=== PATIENT | female | born 1975 | race Caucasian/White ===

== ENCOUNTER 2022-06-20 13:10 | Outpatient (CLI) | payer BC, SELFPAY ==
[2022-06-20 09:52] LABS: Albumin* 4.3 g/dL (3.3-5.0)
[2022-06-20 09:53] LABS: Chloride* 104 mmol/L (96-114); Potassium* 5.1 mmol/L (3.6-5.1); Sodium* 139 mmol/L (135-149)
[2022-06-20 09:55] LABS: Aspartate Amino Transferase* 31 U/L (12-35); Bilirubin Total* 0.6 mg/dL (0.1-1.5); Blood Urea Nitrogen* 12 mg/dL (5-24); Carbon Dioxide* 29 mmol/L (20-32); Cholesterol* 186 mg/dL (90-199); Creatinine* 0.6 mg/dL (0.5-1.5); Estimated Glomerular Filt Rate 113 ml/min; Total Protein* 7.2 g/dL (6.0-8.3)
[2022-06-20 09:56] LABS: Alanine Aminotransferase* 40 U/L (4-35); Alkaline Phosphatase* 89 U/L (40-150); Calcium* 9.4 mg/dL (8.4-10.6); Glucose* 193 mg/dL (60-115); HDL Cholesterol* 54 mg/dL (>=50); LDL Cholesterol Calculated 100 mg/dL (<100); Triglycerides* 160 mg/dL (40-149)
== END 2022-06-20 13:11 | disposition home or self-care (01) ==
PROVIDERS: PCP Family Medicine; Visit Provider Family Medicine
DX: Z00.00 Encounter for general adult medical examination without abnormal findings (principal); E78.5 Hyperlipidemia, unspecified; E66.9 Obesity, unspecified; R73.09 Other abnormal glucose; Z51.81 Encounter for therapeutic drug level monitoring
CPT/HCPCS: 80053; 80061

== ENCOUNTER 2022-12-05 10:09 | Outpatient (CLI) | payer BC, SELFPAY ==
--- NOTE | 2022-12-05 08:23 | W.ANESCHARGE ---
Anesthesia Charges Start Date/Time Anesthesia Start Date: 12/05/22 Anesthesia Start Time: 10:30 Stop Date/Time Anesthesia Stop Date: 12/05/22 Anesthesia Stop Time: 10:55
--- NOTE | 2022-12-05 10:55 | W.ANESCHARGE ---
Anesthesia Charges Start Date/Time Anesthesia Start Date: 12/05/22 Anesthesia Start Time: 10:30 Stop Date/Time Anesthesia Stop Date: 12/05/22 Anesthesia Stop Time: 10:55
== END 2022-12-05 10:10 | disposition home or self-care (01) ==
LOC: OP CLINIC 10:10
PROVIDERS: PCP Family Medicine; Visit Provider Internal Medicine
DX: Z12.11 Encounter for screening for malignant neoplasm of colon (principal); K64.8 Other hemorrhoids; K57.30 Diverticulosis of large intestine without perforation or abscess without bleeding
CPT/HCPCS: 00811; 00812; 45378; J2704

== ENCOUNTER 2023-06-17 07:47 | Outpatient (CLI) | payer BC, SELFPAY ==
--- OUTSIDE RECORDS SUMMARY | 2023-06-22 20:47 | XMS_ITS | Encounter Summary ---
Author Name Unknown Organization [place] Address [address] [facility] [address] Care Team Providers Care Aerodynamicist Name Role Phone Andreina Vegas MD Unavailable [phone] Andreina Vegas MD Primary Care Provider [phone] Neela Owens MD Unavailable [phone] Reason for Visit * Reason Onset Date Comments Refill Request 04/29/2023 Encounter Details Date Type Department Care Team (Late st Contact Info) Description 04/29/2023 Refill [facility] [address] [place] [address] Neela Owens MD [facility] [address] [place] [id number] Refill Request Social History Tobacco Use Types Packs/Day Years Used Date Smoking Tobacco: Never Smokeless Tobacco: Never Alcohol Use Standard Drinks/Week Comments Yes 0 (1 standard drink = 0.6 oz pur e alcohol) occas. use PHQ-2 Answer Date Recorded PHQ-2 Score 0 10/09/2022 Adolescent Education Answer Date Record ed Getting School Help Needed Not on file 03/06 Sex and Gender Information Value Date Recorded Sex Assigned at Not on file Gender Identity Not on file Sexual Orientation Not on file documented as of this encounter Miscellaneous Notes * Telephone Encounter - Gregory Valverde - 04/29/2023 3:39 PM CST 01/16/2023 Assessment & Plan: # Hidradenitis suppurativa, chronic, flaring. Carrero stage II - Discussed the etiology of HS, a chronic skin disorder. Noted that ongoing progression is expectedwithout treatment. Patient has chronic pain and activity restrictions due to HS which has negatively impacted her quality of life and ability to be active. - Discussed treatment options including spironolactone, metformin and adalimumab, as well as risks,benefits and side effects. Pt would like to trial treatment with adalimumab. Patient watson start treatment pending labs and insurance approval. - Dosing is 160 mg on day 1, then 80 mg 2 weeks later (day 15), followed by 40 mg every week - Stop topical clindamycin - Continue oral doxycycline 100 mg daily - Continue Cerave foaming wash (patient unsure if BPO or SA formulation, recommend BPO wash) #Medication monitoring encounter: Labs ordered CBC, BMP, TB, Hep B and Hep C serologies. Confirmed there are no contraindications with Eliquis. Procedures Performed: None Follow-up: pending labs and insurance approval for adalimumab NS VOLLEYBALL COACH documented in this encounter Plan of Treatment Upcoming Encounters Date Type Department Care Team (Late st Contact Info) Description 08/10/2023 8:30 AM WOMENS VOLLEYBALL COACH Office Visit [facility] [address] [place] [phone] Sobeida Oden PA-C [address] [place] [address] documented as of this encounter Visit Diagnoses Diagnosis Hidradenitis suppurativa Hidradenitis documented in this encounter Additional Health Concerns Assessment Noted Time PHQ-9 Depression Total Score: 8 01/31/20 18 7:19 AM CDT documented as of this encounter Care Teams Aerodynamicist Relationship Specialty Start Date End Date Andreina Vegas MD [address] [place] [address] PCP - General erp business analyst 11/24/22 Andreina Vegas MD [address] [place] [address] Assigned OBGYN Provider 04/06/20 Neela Owens MD [address] [facility] [place] [address] Assigned Surgical Provider 01/24/23 documented as of this encounter
--- OUTSIDE RECORDS SUMMARY | 2023-06-22 20:47 | XMS_ITS | Encounter Summary ---
Author Name Unknown Organization [place] Address [address] [facility] [place] [address] Care Team Providers Care Gas Welder Apprentice Name Role Phone Andreina Vegas MD Unavailable Andreina Vegas MD Primary Care Provider [phone] Neela Owens MD Unavailable Reason for Visit * Reason Onset Date Comments Letter Request 11/24/2022 Encounter Details Date Type Department Care Team (Late st Contact Info) Description 11/24/2022 MyC Medical Advice [facility] [address] [place] [address] Andreina Vegas MD [address] [place] [address] Letter Request Social History Tobacco Use Types Packs/Day Years Used Date Smoking Tobacco: Never Smokeless Tobacco: Never Alcohol Use Standard Drinks/Week Comments Yes 0 (1 standard drink = 0.6 oz pur e alcohol) occas. use PHQ-2 Answer Date Recorded PHQ-2 Score 0 10/09/2022 Sex and Gender Information Value Date Recorded Sex Assigned at Not on file Gender Identity Not on file Sexual Orientation Not on file documented as of this encounter Miscellaneous Notes * Telephone Encounter - Andreina Vegas MD - 11/25/2022 8:33 AM CDT I am not qualified to decide or provide this for her. My gut feeling is that it would not be an exemption as she is able to work, etc, but if she feels that it should be, I think she will need to seea primary care provider or a mental health provider to determine that. If she feels she is doing well on her current meds, I think she would be okay to serve. And if she experienced a panic attack, Ithink she would absolutely be excused at that time--that's what alternate jurors are for! In case some one gets ill and can't continue. Andreina Vegas MD * Telephone Encounter - Michelle Schroeder RN - 11/25/2022 8:11 AM CDT Please address the my chart message. Pt is requesting a letter to be exempt from jury duty due to her anxiety. Last OV 10/09/22 SBrenda Schroeder RN documented in this encounter Plan of Treatment Upcoming Encounters Date Type Department Care Team (Late st Contact Info) Description 08/10/2023 8:30 AM ENVIRONMENTAL GEOLOGIST Office Visit [facility] [address] [place] [phone] Sobeida Oden PA-C [address] [place] [address] documented as of this encounter Visit Diagnoses Not on filedocumented in this encounter Additional Health Concerns Assessment Noted Time PHQ-9 Depression Total Score: 8 01/31/20 18 7:19 AM CDT documented as of this encounter Care Teams Gas Welder Apprentice Relationship Specialty Start Date End Date Andreina Vegas MD [address] [place] [address] PCP - General central office operator supervisor 11/24/22 Andreina Vegas MD [address] [place] [address] Assigned OBGYN Provider 04/06/20 Neela Owens MD [address] [facility] [place] [address] Assigned Surgical Provider 01/24/23 documented as of this encounter
--- OUTSIDE RECORDS SUMMARY | 2023-06-22 20:47 | XMS_ITS | Referral Summary ---
Author Name Unknown Organization [place] Address [address] [place] [address]. [place] [address] Care Team Providers Care Manager Pacu Name Role Phone Andreina Vegas MD Unavailable [phone] Andreina Vegas MD Primary Care Provider [phone] Neela Owens MD Unavailable Encounters Date Type Department Care Team Description 05/18/2023 Telephone [facility] [address] [address] Sobeida Oden PA-C Clinic Care Coordination - Initial 04/29/2023 Refill [facility] [address] [address] Neela Owens MD Refill Request from Last 3 Months Allergies Active Allergy Reactions Criticality Noted Date Comments Meperidine Nausea and Vomiting 10/02/2015 Medications Medication Sig Dispensed Refills Start Date End Date Status Rivaroxaban (XARELTO PO) Take 10 mg by mouth daily 0 Active clindamycin (CLEOCIN T) 1 % external solutionIndication s:Hidradenitis suppurativa Apply topically 2 times daily 60 mL 11 10/12/2022 Active citalopram (CELEXA) 10 MG tabletIndications: Mixed anxiety depressive disorder Take 1 tablet (10 mg) by mouth daily 90 tablet 3 10/12/2022 Active diazepam (VALIUM) 5 MG tabletIndications: Mixed anxiety depressive disorder Take 1 tablet (5 mg) by mouth every 8 hours as needed for anxiety 30 tablet 0 10/12/2022 Active doxycycline hyclate (VIBRAMYCIN) 100 MG capsuleIndications :Hidradenitis suppurativa TAKE 1 CAPSULE BY MOUTH EVERY DAY 90 capsule 0 10/20/2022 Active adalimumab (HUMIRA *CF*) 80 MG/0.8ML pen kitIndications:Hid radenitis suppurativa Inject 160 mg on day 1, then 80 mg 2 weeks later (day 15), followed by 40 mg every week beginning day 29 (see separate order) 2.4 mL 0 01/16/2023 Active adalimumab (HUMIRA *CF*) 40 MG/0.4ML pen kitIndications:Hid radenitis suppurativa Inject 0.4 mLs (40 mg) Subcutaneous every 7 days 1.6 mL 2 04/30/2023 Active Active Problems Problem Noted Date Diagnosed Date Morbid obesity 01/29/2018 History of DVT (deep vein thrombosis) 12/07/2017 Immunizations Name Administration Dates Next Due Influenza Vaccine 18-64 (Flublok) 01/31/2019 TDAP Vaccine (Adacel) 03/11/2007 Social History Tobacco Use Types Packs/Day Years [...] on file Sexual Orientation Not on file Last Filed Vital Signs Vital Sign Reading Time Taken Comments Blood Pressure 118/74 10/09/2022 1:03 PM CDT Pulse 66 05/31/2021 1:50 PM MEDICAL CLAIMS EXAMINER Temperature - - Respiratory Rate 22 10/02/2015 8:36 AM CDT Oxygen Saturation - - Inhaled Oxygen Concentration - - Weight 104.5 kg (230 lb 6.4 oz) 10/09/2022 1:03 PM CDT Height 157.5 cm (5' 2) 10/09/2022 1:03 PM CDT Body Mass Index 42.14 10/09/2022 1:03 PM CDT Plan of Treatment Upcoming Encounters Date Type Department Care Team (Late st Contact Info) Description 08/10/2023 8:30 AM MEDICAL CLAIMS EXAMINER Office Visit [facility] [address] [place] [phone] Sobeida Oden PA-C [address] [place] [address] Care Teams Manager Pacu Relationship Specialty Start Date End Date Andreina Vegas MD [address] [facility] [place] [address] PCP - General water pollution control inspector 11/24/22 Andreina Vegas MD [address] [place] [address] Assigned OBGYN Provider 04/06/20 Neela Owens MD [address] [facility] [place] [address] Assigned Surgical Provider 01/24/23
--- OUTSIDE RECORDS SUMMARY | 2023-06-22 20:47 | XMS_ITS | Encounter Summary ---
Author Name Unknown Organization [place] Address [address] [facility] [place] [address] Care Team Providers Care Nursing Admin Name Role Phone Andreina Vegas MD Unavailable [phone] Andreina Vegas MD Primary Care Provider Neela Owens MD Unavailable [phone] Reason for Visit * Reason Onset Date Comments Appointment 12/22/2022 HS - urgent refe rral Encounter Details Date Type Department Care Team (Late st Contact Info) Description 12/22/[address] [facility] [place] [address] [place] [address] 3rd [place] [address] Neela Owens MD [address] [facility] [address] [place] [id number] Appointment (HS - urgent referral) Social History Tobacco Use Types Packs/Day Years [...] on file Sexual Orientation Not on file COVID-19 Exposure Response Date Recorded In the last 10 days, have yo u been in contact with someone who was confirmed or suspected to have Coronavirus/COVID-19? No / Unsure 01/16/2023 10:35 AM CDT documented as of this encounter Miscellaneous Notes * Telephone Encounter - Shamika Romeo CMA - 12/23/2022 3:11 PM CDT I called and spoke with Cortney and scheduled her for Jan 16 * Telephone Encounter - Florentino Frost - 12/22/2022 10:25 AM CDT This encounter is being sent to inform the clinic that this patient has a referral from Andreina Vegas MD in [facility] for the diagnoses of HS - not responsive to topical abx and oral abx and has requested that this patient be seen within 1-2 weeks and/or with Dr. Owens. Based on the availability of our provider(s), we are unable to accommodate this request. ??? Were all sites offered this patient? Pt only wanted Dr. Owens. Per protocol Dr. Owens doesn't see for this but the referring doctor wants the pt to see Dr. Owens. Please call the pt back to discuss/schedule. Thanks ??? Does scheduling algorithm request to schedule next available? Patient appointment has not been scheduled. Please review the referral request for accommodation and contact the patient. If unable to accommodate, please resubmit a referral and indicate a preferredpartner or affiliate location using Provider Finder or Scheduling Instructions field. documented in this encounter Plan of Treatment Upcoming Encounters Date Type Department Care Team (Late st Contact Info) Description 08/10/2023 8:30 AM HUMAN RESOURCES SUPPORT SPECIALIST Office Visit [facility] [address] [place] [address] Sobeida Oden PA-C [address] [place] [address] documented as of this encounter Visit Diagnoses Not on filedocumented in this encounter Additional Health Concerns Assessment Noted Time PHQ-9 Depression Total Score: 8 01/31/20 18 7:19 AM CDT documented as of this encounter Care Teams Nursing Admin Relationship Specialty Start Date End Date Andreina Vegas MD [address] [place] [address] PCP - General rough and truing machine operator 11/24/22 Andreina Vegas MD [address] [place] [address] Assigned OBGYN Provider 04/06/20 Neela Owens MD [address] [facility] [place] [address] Assigned Surgical Provider 01/24/23 documented as of this encounter
--- OUTSIDE RECORDS SUMMARY | 2023-06-22 20:47 | XMS_ITS | Encounter Summary ---
Author Name Unknown Organization [place] Address [facility] [place] [address] Care Team Providers Care Improvement Nurse Name Role Phone Andreina Vegas MD Unavailable [phone] Andreina Vegas MD Primary Care Provider [phone] Neela Owens MD Unavailable [phone] Encounter Details Date Type Department Care Team (Late Contact Info) Description 2023 MyC Medical Advice [facility] [address] [place] [address] Jewels Frank Social History Tobacco Use Types Packs/Day Years [...] AM CDT documented as of this encounter Plan of Treatment Upcoming Encounters Date Type Department Care Team (Late Contact Info) Description 08/10/2023 8:30 AM CEMENTER Office Visit [facility] [address] [address] Sobeida Oden PA-C [address] [place] [address] [place] [address] documented as of this encounter Visit Diagnoses Not on filedocumented in this encounter Additional Health Concerns Assessment Noted Time PHQ-9 Depression Total Score: 8 01/31/20 18 7:19 AM CDT documented as of this encounter Care Teams Improvement Nurse Relationship Specialty Start Date End Date Andreina Vegas MD [address] [place] [address] PCP - General bin packer 11/24/22 Andreina Vegas MD [address] [place] [address] Assigned OBGYN Provider 04/06/20 Neela Owens MD [address] [facility] [place] [address] Assigned Surgical Provider 01/24/23 documented as of this encounter
--- OUTSIDE RECORDS SUMMARY | 2023-06-22 20:47 | XMS_ITS | Encounter Summary ---
Author Name Unknown Organization [place] Address [address] [place] [address] Care Team Providers Care Fretted String Instrument Repairer Name Role Phone Andreina Vegas MD Unavailable [phone] Andreina Vegas MD Primary Care Provider Reason for Visit * Reason Comments Derm Problem OB thinks she may be having a severe case of HS. Inner thigh and groin area. OB was trying to treat it with Doxycycline, Clindamycin, red light therapy and de-chely. Treatment options haven't been working or lasting. Constantly in pain. Spot on the bra line that doesn't go away. * Consultation (Priority: 1-2 Weeks) - Pending Review Specialty Diagnoses / Procedures Referred By Jose Ramon leslie Referred To Contact Dermatology Diagnoses Hidradenitis suppurativa Andreina Vegas MD [address] [place] [address] Referral ID Status Reason Start Date Expiration Date V isits Requested Visits Authorized [id number] Pending Review 11/04/2022 11/04/2023 1 1 Encounter Details Date Type Department Care Team (Late st Contact Info) Description 01/16/2023 10:45 AM CDT Office Visit [facility] [address] [place] [address] Neela Owens MD [address] [place] [address] Hidradenitis suppurativa (Primary Dx); Skin pain Social History Tobacco Use Types Packs/Day Years [...] AM CDT documented as of this encounter Patient Instructions * Patient Instructions* Neela Owens MD - 01/16/2023 10:45 AM CDT Images from the original note were not included. HIDRADENITIS SUPPURATIVA What is hidradenitis suppurativa (HS)? Hidradenitis suppurativa (HS) is a chronic skin disorder affecting the hair follicles. The disease starts with sore red lumps (or boils), typically involving the armpits, breasts, lower abdomen, groin, and buttocks. These lesions appear suddenly, increase in size and then burst or rupture, usually u nder the surface of the skin. This causes severe pain. Sometimes they rupture to the surface of theskin, draining pus. In some people, they can result in tunnels under the skin that may or may not continue to drain. When the lumps heal, they can leave scars. Facts: HS is a chronic skin disease, that comes and goes in flares, and is very painful HS happens in many people - men and women, young and elderly, all races and ethnicities. But HS is more common in young adults, women and skin of color One out of three people with HS has a family member with HS HS is NOT due to an infection or washing habits HS is NOT contagious, so it cannot be spread from one person to another person HS is NOT caused by how well you wash or what soaps you use HS is NOT caused by smoking or obesity, but quitting smoking and losing weight have helped some people Causes The cause of HS remains unclear. It is thought that there is a problem in the hair follicle that makes it weaker and easier to break open. The current theory is that there are three steps that cause an HS lesion to form:: The hair follicle gets plugged The hair follicle swells and then ruptures, causing pain and inflammation In some people, the inflammation does not stop and results in tunneling through the skin Associated Conditions HS is associated with several other medical conditions and activities including: Tobacco use High cholesterol, heart disease and stroke Type 2 diabetes Depression and anxiety Arthritis, which causes stiffness and pain in joints Inflammatory bowel disease (including Crohn's disease and ulcerative colitis) Severe acne and pilonidal sinus/cyst Polycystic ovarian syndrome Skin cancer in areas of longstanding HS lesions, typically in the groin or buttocks (rare) It is important to ask your physician to watch out for these conditions. To help manage mental health issues related to HS and emotional support: Help finding a mental health specialist: https://www.psychologyKonaWare.Oxehealth/us/therapists Suicide prevention (05/01 free confidential support): Website: https://suicidepreventionlifeline.org/ Support groups: Hope for HS: www.hopeforhs.org HS Connect: www.hsconnect.org Intimacy support: [place] Association of Sexuality Educators, Counselors and Therapists (AASECT) website: https://www.aasect.org For help quitting smoking Phone: Northern Irish: 4-540-IBMK-NOW ( ) Kenyan: 3-131-ZEUPAL-CEDRIC ( ) Website: Northern Irish: https://smokefree.gov/ Kenyan: sailaja.smokefree.gov Lifestyle Modifications Quitting smoking or weight loss can help your overall health and may help improve HS symptoms in some people, but not everyone. It is recommended to eat a well-balanced, healthy diet (https://health.gov/dietaryguidelines) and to maintain a healthy weight. Avoiding dietary triggers can help some people suffering with HS, but will not necessarily help others with HS. Some people may find that friction, irritation, and rubbing may worsen HS symptoms. Some people do better with loose, breathable clothing and fabrics. Shaving close to the affected areas may also worsen HS in some people. But, not everyone has the same triggers for their HS, so see what works for you! Some medications may worsen HS such as lithium, testosterone, and some progesterone-only control. Please discuss this with your provider before stopping medication. Zinc supplementation has been shown in some studies to help HS. However, every treatment can have aside effects, so talk to your provider before starting any treatment. Treatment Medicines, procedures and surgeries are offered to treat HS. Treatment can help reduce breakouts and improve quality of life. Medicines used: Topical washes (e.g. chlorhexidine, benzoyl peroxide) Clindamycin on the skin - seems effective for pustules and papules. Probably not helpful for largerchronic lesions. Oral antibiotics (e.g. doxycycline, clindamycin + rifampin, dapsone) - antibiotics may help some, but not all patients Hormonal therapies (e.g. spironolactone, oral contraceptives) - primarily used in females though tohave a hormonal component to their HS (e.g perimenstrual flares, worsening in , polycysticovarian syndrome) Immunosuppression (e.g. prednisone) Injectables (e.g. adalimumab, infliximab) - Adalimumab is the only federal drug administration (FDA) approved medication for HS Education for adalimumab injections: https://www.Aqdot/Gen110-Grivy/injection Adalimumab abassador program: Website: https://www.Aqdot/Gen110-complete/sign-up/ Phone: 2.369.7AUWQJT ( ) Procedures: Intralesional steroid injections - may help areas of acute active inflammation Some hair removal lasers - If considering this option, we recommend doing this only with a medical professional that has experience treating HS. Surgeries: Incision and drainage - Provides fast, short-term relief, but symptoms likely to recur. Deroofing - This surgery involves opening the lesion and cleaning out the base. This treatment is effective for recurring lesions. Recurrence rates seem to be similar to excision. These are typicallyleft open and allowed to heal on their own over 1-3 months Excision - This involves cutting out chronic lesions. This may entail cutting out a large affected area referred to as wide local excision, or cutting out single lesions, referred to as localized excisions. Excision may be done with a scalpel, electric heating device or laser (e.g. carbon dioxide [CO2] laser). These are either allowed to heal on their own, closed with sutures, or closed with a graft or flap. Grafts are typically done by taking skin from one site of the body and using it to close another part of the body. Flaps are done by moving tissue around to close a wound. Check out this website to help decide the best treatment options for you! https://www.informed-decisions.org/hidradenitispda.php documented in this encounter Progress Notes * Neela Owens MD - 01/16/2023 10:45 AM CDT [facility] Dermatology Note Encounter Date: Jan 16, 2023 Office Visit Dermatology Problem List: 1. Hidradenitis suppurativa Carrero II in the inguinal creases and below the pannus Current tx: oral doxycycline, Cerave foaming acne wash benzoyl peroxide Future tx: adalimumab pending labs and insurance approval Prevous tx: topical clindamycin Assessment & Plan: # Hidradenitis suppurativa, chronic, [...] pending labs and insurance approval for adalimumab Staff and Medical Student: Sheila Pierre, MS3, seen and staffed with Dr. Owens I was present with the medical student who participated in the service and in the documentation of the note. I have verified the history and personally performed the physical exam and medical decision making. I agree with the assessment and plan of care as documented in the note. Neela Owens MD Group Program Manager of Dermatology [facility] ER CC: Derm Problem (OB thinks she may be having a severe case of HS. Inner thigh and groin area. OB was trying to treat it with Doxycycline, Clindamycin, red light therapy and de-chely. Treatment options haven't been working or lasting. Constantly in pain. //Spot on the bra line that doesn't go away.) HPI: Ms. Vani Nielsen is a(n) 47 year old female who presents today as a new patient for HS. She was referred by her OBGYN Dr. Vegas. Today, Cortney reports having HS for the last 5 years with near constant flares for the last two years, worsening in the last few months. She notes active, painful, draining lesions under her bilateralbreasts, bilateral groin, labia, and right back inner thigh.Treatments have included unroofing, topical clindamycin, oral clindamycin and oral doxycycline. She is currently taking oral doxycycline, does not feel this is helping. Topical clindamycin quickly runs out, therefore not currently using. Also doing red light therapy on her own and has tried different undergarments to reduce friction, also does not seem to be helping. Cortney uses a Cerave foaming acne wash, unsure if BPO or SA. Patient is aware that weight loss may help her disease, and finds that walking has been the most beneficial but is limited by pain. No history of tobacco smoking. Of note, patient is on Eliquis for DVT. No history of neuromuscular disease or cancers. Periods areirregular with history of ablation. Patient is otherwise feeling well, without additional skin concerns. Labs: None reviewed. Physical Exam: Vitals: There were no vitals taken for this visit. SKIN: Focused examination of axilla, breasts, groin was performed. - Bilateral axilla clear of HS lesions - Erythematous nodule under the R breast without drainage - Hyperkeratotic brown plaque on left superior flank - Several erythematous nodules and rope-like scarring below abdominal pannus - Several erythematous nodules along bilateral inguinal creases and medial thighs - No other lesions of concern on areas examined. Medications: Current Outpatient Medications Medication adalimumab (HUMIRA *CF*) 40 MG/0.4ML pen kit adalimumab (HUMIRA *CF*) 80 MG/0.8ML pen kit citalopram (CELEXA) 10 MG tablet clindamycin (CLEOCIN T) 1 % external solution diazepam (VALIUM) 5 MG tablet doxycycline hyclate (VIBRAMYCIN) 100 MG capsule Rivaroxaban (XARELTO PO) No current facility-administered medications for this visit. Past Medical History: Patient Active Problem List Diagnosis Morbid obesity (H) History of DVT (deep vein thrombosis) Past Medical History: Diagnosis Date Depressive disorder DUB (dysfunctional uterine bleeding) s/p ablation, neg emb 02/2015 DVT (deep vein thrombosis) in 1 during and one after delivery CC Andreina Vegas MD [address] [phone] on close of this encounter. documented in this encounter Nursing Notes * Mary Hanson MA - 01/16/2023 10:45 AM CDT Dermatology Rooming Note Vani Nielsen's goals for this visit include: Chief Complaint Patient presents with Derm Problem OB thinks she may be having a severe case of HS. Inner thigh and groin area. OB was trying to treatit with Doxycycline, Clindamycin, red light therapy and de- chely. Treatment options haven't been working or lasting. Constantly in pain. Spot on the bra line that doesn't go away. Mary Hanson CMA documented in this encounter Plan of Treatment Upcoming Encounters Date Type Department Care Team (Late st Contact Info) Description 08/10/2023 8:30 AM DRUM MAKER Office Visit [facility] [place] [address] [place] [address] Sobeida Oden PA-C [address] [place] [address] documented as of this encounter Results * Hepatitis B core antibody (01/16/2023 11:50 AM CDT) Hepatitis B Core Antibody Total Nonreactive Nonreactive 01/16/2023 5:13 PM CDT [facility]PROT/EN DO Blood STRUCTURE OF LEFT UPPER LIMB / Unknown Venipuncture / Unknown 01/16/2023 11:50 AM CDT 01/16/2023 11:50 AM CDT Neela Owens MD LAB - BLOOD ORDER JAMES [facility]/PROT/ENDO [facility]/Prot/Endo [address] [facility], [address] [phone] * Hepatitis C antibody (01/16/2023 11:50 AM CDT) Hepatitis C Antibody Nonreactive Nonreactive 01/16/2023 5:13 PM CDT [facility]PROT/EN DO Blood STRUCTURE OF LEFT UPPER LIMB / Unknown Venipuncture / Unknown 01/16/2023 11:50 AM CDT 01/16/2023 11:50 AM CDT Narrative [facility]/PROT/ENDO - 01/16/2023 5:13 PM CDT Assay performance characteristics have not been established for newborns, infants, and children. Neela Owens MD LAB - BLOOD ORDER JAMES [facility] CORE/PROT/ENDO [facility] Core/Prot/Endo [address] [facility] [address] [phone] * Hepatitis B surface antigen (01/16/2023 11:50 AM CDT) Pathologist [facility] [place] Hepatitis B Surface Antigen Nonreactive Nonreactive 01/16/2023 5:13 PM CDT SPECIALTY CORE/PROT/EN DO Blood STRUCTURE OF LEFT UPPER LIMB / Unknown Venipuncture / Unknown 01/16/2023 11:50 AM CDT 01/16/2023 11:50 AM CDT Neela Owens MD LAB - BLOOD ORDER JAMES [facility] CORE/PROT/ENDO Specialty Core/Prot/Endo [address] [facility], Room [address] [phone] * Hepatitis B Surface Antibody (01/16/2023 11:50 AM CDT) Pathologist [facility] [place] Hepatitis B Surface Antibody Instrument Value 272.88 <8.00 m[IU]/mL 01/16/2023 5:13 PM CDT SPECIALTY CORE/PROT/END O Hepatitis B Surface Antibody Reactive 01/16/2023 5:13 PM CDT SPECIALTY CORE/PROT/END O Comment:Patient is considere d to be immune to infection with hepatitis B when the value is greater than or equal to 12.00 mIU/mL. Blood STRUCTURE OF LEFT UPPER LIMB / Unknown Venipuncture / Unknown 01/16/2023 11:50 AM CDT 01/16/2023 11:50 AM CDT Neela Owens MD LAB - BLOOD ORDER JAMES [facility] CORE/PROT/ENDO Specialty Core/Prot/Endo [address] [facility] [address] [facility] Room [address] [phone] * (ABNORMAL) Comprehensive metabolic panel (01/16/2023 11:50 AM CDT) Pathologist [facility] [place] Sodium 137 136 - 145 mmol/L 01/16/2023 12:22 PM CDT [facility] - CORE LAB Potassium 4.4 3.4 - 5.3 mmol/L 01/16/2023 12:22 PM CDT [facility] - CORE LAB Chloride 102 98 - 107 mmol/L 01/16/2023 12:22 PM CDT [facility] - [facility]ORE [facility] Carbon Dioxide (CO2) 26 22 - 29 mmol/L 01/16/2023 12:22 PM CDT [facility] - [facility]ORE LAB Anion Gap 9 7 - 15 mmol/L 01/16/2023 12:22 PM CDT [facility] - [facility]ORE [facility] Urea Nitrogen 9.7 6.0 - 20.0 mg/dL 01/16/2023 12:22 PM CDT [facility] - CORE LAB Creatinine 0.63 0.51 - 0.95 mg/dL 01/16/2023 12:22 PM CDT [facility] - [facility]ORE LAB Calcium 9.4 8.6 - 10.0 mg/dL 01/16/2023 12:22 PM CDT [facility] - [facility]ORE [facility] Glucose 123(H) 70 - 99 mg/dL 01/16/2023 12:22 PM CDT [facility] - [facility]ORE [facility] Alkaline Phosphatase 94 35 - 104 U/L 01/16/2023 12:22 PM CDT [facility] - [facility] AST 17 0 - 45 U/L 01/16/2023 12:22 PM CDT [facility] Comment:Reference intervals for this test were updated on 11/24/2022 to more accurately reflect our healthy population. There may be differences in the flagging of prior results with similar values performed with this method. Interpretation of those prior results can be made in the context of the updated reference intervals. ALT 17 0 - 50 U/L 01/16/2023 12:22 PM CDT [facility] - [facility]ORE [facility] Comment:Reference intervals for this test were updated on 11/24/2022 to more accurately reflect our healthy population. There may be differences in the flagging of prior results with similar values performed with this method. Interpretation of those prior results can be made in the context of the updated reference intervals. Protein Total 7.4 6.4 - 8.3 g/dL 01/16/2023 12:22 PM CDT [facility] Albumin 4.3 3.5 - 5.2 g/dL 01/16/2023 12:22 PM CDT [facility] Bilirubin Total 0.6 <=1.2 mg/dL 01/16/2023 12:22 PM CDT [facility] GFR Estimate >90 >60 mL/min/1. 73m2 01/16/2023 12:22 PM CDT [facility] - [facility] Blood STRUCTURE OF LEFT UPPER LIMB / Unknown Venipuncture / Unknown 01/16/2023 11:50 AM CDT 01/16/2023 11:50 AM CDT Neela Owens MD LAB - BLOOD ORDER JAMES [facility] - CORE LAB [facility] [address] [place] [address] documented in this encounter Visit Diagnoses Diagnosis Hidradenitis suppurativa- Primary Hidradenitis Skin pain Disturbance of skin sensation documented in this encounter Additional Health Concerns Assessment Noted Time PHQ-9 Depression Total Score: 8 01/31/20 18 7:19 AM CDT documented as of this encounter Care Teams Fretted String Instrument Repairer Relationship Specialty Start Date End Date Andreina eVgas MD [address] [place] [address] PCP - General rocket test fire worker 11/24/22 Andreina Vegas MD [address] [place] [address] Assigned OBGYN Provider 04/06/20 documented as of this encounter
--- OUTSIDE RECORDS SUMMARY | 2023-06-22 20:47 | XMS_ITS | Encounter Summary ---
Author Name Unknown Organization [place] Address [address] [facility] [address] Care Team Providers Care Business Systems Analyst Name Role Phone Andreina Vegas MD Unavailable [phone] Andreina Vegas MD Primary Care Provider Neela Owens MD Unavailable [phone] Reason for Visit * Reason Onset Date Comments Appointment 11/24/2022 Encounter Details Date Type Department Care Team (Late st Contact Info) Description 11/24/2022 Telephone [facility] Women's [address] [place] [address] Andreina Vegas MD [address] [place] [address] Appointment Social History Tobacco Use Types Packs/Day Years [...] encounter Miscellaneous Notes * Telephone Encounter - Vani Tran - 11/24/2022 8:35 AM CDT Reason for Call: Appointment Request Patient requesting this type of appt: Discuss letter to be dismissed from jury duty due to anxiety Requested provider: Andreina Vegas Reason patient unable to be scheduled: Not within requested timeframe When does patient want to be seen/preferred time: smooth Comments: patient wondering if she could be worked in for a phone visit or in person smooth. Could we send this information to you in [facility] or would you prefer to receive a phone call?: No preference Okay to leave a detailed message?: Yes at Home number on file [phone] (home) Call taken on 11/24/2022 at 8:35 AM by aVni Tran documented in this encounter Plan of Treatment Upcoming Encounters Date Type Department Care Team (Late st Contact Info) Description 08/10/2023 8:30 AM READING TUTOR Office Visit [facility] [address] [place] [address] Sobeida Oden PA-C [address] [place] [address] documented as of this encounter Visit Diagnoses Not on filedocumented in this encounter Additional Health Concerns Assessment Noted Time PHQ-9 Depression Total Score: 8 01/31/20 18 7:19 AM CDT documented as of this encounter Care Teams Business Systems Analyst Relationship Specialty Start Date End Date Andreina Vegas MD [address] [place] [address] PCP - General tug boat captain 11/24/22 Andreina Vegas MD [address] [place] [address] Assigned OBGYN Provider 04/06/20 Neela Owens MD [address] [facility] [place] [address] Assigned Surgical Provider 01/24/23 documented as of this encounter
--- OUTSIDE RECORDS SUMMARY | 2023-06-22 20:47 | XMS_ITS | Clinical Summary ---
Author Name Unknown Organization [employer] [facility] [employer] Address [place], [place] [address] Care Team Providers Care High School Mathematics Teacher Name Role Phone Pcp, No Primary Care Provider Unavailabl e Allergies Active Allergy Reactions Criticality Noted Date Comments Meperidine Nausea And Vomiting 05/22/2016 Medications Medication Sig Dispensed Refills Start Date End Date Status XARELTO 10 mg tablet 0 11/13/2017 Acti ve citalopram (CELEXA) 10 mg tablet Take 10 mg by mouth once daily. 0 01/24/2019 Active diazePAM CONCENTRATE (DIAZEPAM INTENSOL) 5 mg/mL solution Take by mouth. 0 Active benzonatate (TESSALON) 100 mg capsuleIndications:Po st-viral cough syndrome Take 1 Capsule (100 mg) by mouth 3 times daily if needed for Cough. 21 Capsule 0 04/07/2022 Active Active Problems Problem Noted Date Diagnosed Date History of DVT (deep vein thrombosis) 12/07/2017 Immunizations Name Administration Dates Next Due COVID-19 vaccine (Moderna 10 0mcg/0.5mL) PF, MDV 06/19/2021 Influenza, IIV3 (Age 6-35 mos) 04/12/2013 Influenza, IIV3 (Age >=3 years) 03/30/2006 Influenza, IIV4 06/13/2021,01/31/2019,05/22/2016 Influenza,CCIIV4 PRESERV FREE 03/28/2020 Tdap 08/17/2017,03/11/2007 Family History Medical History Relation Name Comments Good Health Father watches BP and Sugars Good Health Mother Cancer-colon Paternal Aunt Cancer-colon Paternal Grandmother Relation Name Status Comments Father Mother Paternal Aunt Paternal Grandmother Social History Tobacco Use Types Packs/Day Years Used Date Smoking Tobacco: Never Smokeless Tobacco: Never Tobacco Cessation:Counseling Given: Yes Alcohol Use Standard Drinks/Week Comments No 0 (1 standard drink = 0.6 oz pur e alcohol) Social Connections Answer Date Recorded Frequency of Communication with Friends and Fami ly Not on file 04/07/2022 Sex and Gender Information Value Date Recorded Sex Assigned at Not on file Gender Identity Not on file Sexual Orientation Not on file Obstetrics History Para Term AB IAB SAB Ectopic Multiple Livin g Live Births 5 4 4 1 1 4 Date Outcome GA Total Labor Labor/2nd/3rd Weight Sex Delivery Anes PTL Emilie A1 A5 Name Cl in SAB Term Term Term Term Last Filed Vital Signs Vital Sign Reading Time Taken Comments Blood Pressure 111/76 04/07/2022 11:14 AM CDT Pulse 74 04/07/2022 11:14 AM CDT Temperature 36.7 ??C (98 ??F) 04/07/2022 11:14 AM CDT Respiratory Rate - - Oxygen Saturation 98% 04/07/2022 11:14 AM CDT Inhaled Oxygen Concentration - - Weight 104.3 kg (230 lb) 04/23/2019 8:34 AM DISPOSAL PLANT OPERATOR Height 160 cm (5' 3) 12/07/2017 4:24 PM CDT Body Mass Index 40.74 12/07/2017 4:24 PM CDT Plan of Treatment Health Maintenance Due Date Last Done Comments HIV for age 15-65 01/24/1992 Hepatitis C screening for age 18-79 1995 Pap test for age 21-65 06/21/2013 1, 06/21/2010, 03/11/2007, Additional history exists Depression screening for age 12+ 05/22/2017 05/22/2016 BMI (ht and wt on same day) for age 18+ 12/07/2018 12/07/2017, 05/22/2016 Colonoscopy through age 75 2022 Lipids for age 45-75 2022 Mammogram for age 45-75 2022 COVID-19 vaccine series ( season) 2023 06/19/2021, 09/19/2020 Influenza for age 9-49 02/13/2023 , 03/28/2020, 01/31/2019, Additional history exists Tetanus booster 08/18/2027 08/17/2017, 03/11/2007 Tdap Completed 08/17/2017, 03/11/2007 Pneumococcal series for age 6-64 Aged Out No longer eligible based on patient's age to complete this topic Care Teams High School Mathematics Teacher Relationship Specialty Start Date End Date Pcp, No . PCP - General 12/25/22
--- OUTSIDE RECORDS SUMMARY | 2023-06-22 20:47 | XMS_ITS | Encounter Summary ---
Author Name Unknown Organization [facility] Address [address] [facility] [place] [address] Care Team Providers Care Disability Advocate Name Role Phone Andreina Vegas MD Unavailable [phone] Andreina Vegas MD Primary Care Provider [phone] Encounter Details Date Type Department Care Team (Latest Contact Info) Description 01/16/2023 Travel Social History Tobacco Use Types Packs/Day Years [...] st Contact Info) Description 08/10/2023 8:30 AM LEDGE MAN Office Visit [facility] [place] [id number] [facility] 3rd [place] [address] Sobeida Oden PA-C [address] [place] [address] documented as of this encounter Visit Diagnoses Not on filedocumented in this encounter Additional Health Concerns Assessment Noted Time PHQ-9 Depression Total Score: 8 01/31/20 18 7:19 AM CDT documented as of this encounter Care Teams Disability Advocate Relationship Specialty Start Date End Date Andreina Vegas MD [address] [place] [address] PCP - General dock worker 11/24/22 Andreina Vegas MD [address] [place] [address] Assigned OBGYN Provider 04/06/20 documented as of this encounter
--- OUTSIDE RECORDS SUMMARY | 2023-06-22 20:47 | XMS_ITS | Clinical Summary ---
Author Name Unknown Organization [place] Address [address] [place] [address]. [place] [address] Care Team Providers Care Liturgical Music Director Name Role Phone Andreina Vegas MD Unavailable [phone] Andreina Vegas MD Primary Care Provider Neela Owens MD Unavailable [phone] Allergies Active Allergy Reactions Criticality Noted Date [...] History of DVT (deep vein thrombosis) 12/07/2017 Encounters Date Type Department Care Team Description 05/18/2023 Telephone [facility] [address] 3rd [place] [phone] Sobeida Oden PA-C Clinic Care Coordination - Initial 04/29/2023 Refill [facility] [address] 3rd [place] [phone] Neela Owens MD Refill Request from Last 3 Months Immunizations Name Administration Dates Next Due Influenza Vaccine 18-64 (Flublok) 01/31/2019 TDAP Vaccine (Adacel) 03/11/2007 Family History Medical History Relation Comments Diabetes Father Hypertension Father Diabetes Maternal Grandmother Colon Cancer Paternal Grandmother Anesthesia Reaction No family hx of Anxiety Disorder No family hx of Asthma No family hx of Breast Cancer No family hx of Cerebrovascular Disease No family hx of Coronary Artery Disease No family hx of Depression No family hx of Genetic Disorder No family hx of Hyperlipidemia No family hx of Melanoma No family hx of Mental Illness No family hx of Obesity No family hx of Osteoporosis No family hx of Other Cancer No family hx of Prostate Cancer No family hx of Skin Cancer No family hx of Substance Abuse No family hx of Thyroid Disease No family hx of Unknown/Adopted No family hx of Relation Status Comments Father Alive Maternal Grandmother Mother Alive Paternal Grandmother Social History Tobacco Use Types [...] PM CDT Pulse 66 05/31/2021 1:50 PM BUSINESS OPERATIONS SPECIALIST Temperature - - Respiratory Rate 22 10/02/2015 [...] st Contact Info) Description 08/10/2023 8:30 AM BUSINESS OPERATIONS SPECIALIST Office Visit [facility] [place] [address] [facility] 3rd [place] [address] Sobeida Oden PA-C [address] [place] [id number] Health Maintenance Due Date Last Done Comments ADVANCE CARE PLANNING 1977 ANNUAL REVIEW OF HM ORDERS [address] CT COLONOGRAPHY 1977 FIT 1977 FLEX SIG 1977 HEPATITIS B IMMUNIZATION (1 of 3 - 3-dose series) 1977 sDNA (Cologuard) 1977 Pneumococcal Vaccine: Pediatrics (0 to 5 Years) and At-Risk Patients (6 to 64 Years) (1 - PCV) 1983 COLONOSCOPY 1987 COLORECTAL CANCER SCREENING 1987 HIV SCREENING 01/24/1992 LIPID 01/29/2023 01/29/2018, 07/16, 06/21/2010 COVID-19 Vaccine ( season) 2023 06/19/2021, 09/19/2020 INFLUENZA VACCINE (#1) 2023 , 06/13/2021, 03/28/2020, Additional history exists YEARLY PREVENTIVE VISIT 10/10/2023 10/10/19 23, 12/07/2020, 05/17/2019, Additional history exists MAMMO SCREENING 10/11/2023 10/10/2022, 10/14, 06/06/2019, Additional history exists HPV TEST 12/07/2025 12/07/2020, 06/2 10/2020, 10/02/2015, Additional history exists PAP 12/07/2025 12/07/2020, 10/02/2015 DTAP/TDAP/TD IMMUNIZATION (3 - Td or Tdap) 08/18/2027 08/17/2017, 03/11/2007 PHQ-2 (once per calendar year) Completed 10/09/2022, 12/07/2020, 05/17/2019, Additional history exists HEPATITIS C SCREENING Completed 01/16/2023 HPV IMMUNIZATION Aged Out No longer e ligible based on patient's age to complete this topic IPV IMMUNIZATION Aged Out No longer e ligible based on patient's age to complete this topic MENINGITIS IMMUNIZATION Aged Out No l onger eligible based on patient's age to complete this topic RSV MONOCLONAL ANTIBODY Aged Out No l onger eligible based on patient's age to complete this topic Care Teams Liturgical Music Director Relationship Specialty Start Date End Date Andreina Vegas MD [address] [place] [address] PCP - General community affairs manager 11/24/22 Andreina Vegas MD [address] [place] [address] Assigned OBGYN Provider 04/06/20 Neela Owens MD [address] [facility] [address] [place] [id number] Assigned Surgical Provider 01/24/23
--- OUTSIDE RECORDS SUMMARY | 2023-06-22 20:47 | XMS_ITS | Encounter Summary ---
Author Name Unknown Organization [place] Address [address] [place] [address] Care Team Providers Care Thermal Cutting Machine Operator Name Role Phone Andreina Vegas MD Unavailable [phone] Andreina Vegas MD Primary Care Provider [phone] Neela Owens MD Unavailable [phone] Reason for Visit * Reason Onset Date Comments Clinic Care Coordination - Initial 05/18/2023 Encounter Details Date Type Department Care Team (Late st Contact Info) Description 05/18/[address] [facility] [address]rd [place] [address] Sobeida Oden PA-C [address] [place] [phone] Clinic Care Coordination - Initial Social History Tobacco Use Types Packs/Day Years [...] encounter Miscellaneous Notes * Telephone Encounter - Cassandra Dawn - 05/18/2023 11:49 AM CST Via phone patient was scheduled for the following: Appointment type: Return HS Provider: Sobeida Oden Return date: 08-10-23 Specialty phone number: [phone] CULTURE DIRECTOR documented in this encounter Plan of Treatment Upcoming Encounters Date Type Department Care Team (Late st Contact Info) Description 08/10/2023 8:30 AM AQUACULTURE DIRECTOR Office Visit [facility] Dermatology [address]rd [place] [phone] Sobeida Oden PA-C [address] [place] [address] documented as of this encounter Visit Diagnoses Not on filedocumented in this encounter Additional Health Concerns Assessment Noted Time PHQ-9 Depression Total Score: 8 01/31/20 18 7:19 AM CDT documented as of this encounter Care Teams Thermal Cutting Machine Operator Relationship Specialty Start Date End Date Andreina Vegas MD [address] [place] [address] PCP - General instrument shop supervisor 11/24/22 Andreina Vegas MD [address] [place] [address] Assigned OBGYN Provider 04/06/20 Neela Owens MD [address] [facility] [place] [address] Assigned Surgical Provider 01/24/23 documented as of this encounter
--- OUTSIDE RECORDS SUMMARY | 2023-06-22 20:47 | XMS_ITS | Encounter Summary ---
Author Name Unknown Organization [place] Address [facility] [facility] [address] Care Team Providers Care Cabana Attendant Name Role Phone Andreina Vegas MD Unavailable [phone] Andreina Vegas MD Primary Care Provider [phone] Reason for Visit * Reason Onset Date Comments Prior Auth - Medication 01/16/2023 Humira Encounter Details Date Type Department Care Team (Late st Contact Info) Description 01/16/2023 Telephone [facility] [address] [place] [address] Neela Owens MD [address] [place] [address] [address] [place] [id number] Prior Auth - Medication (Humira) Social History Tobacco Use Types Packs/Day Years [...] encounter Miscellaneous Notes * Telephone Encounter - Jewels Frank - 2023 2:34 PM CDT Images from the original note were not included. Prior Authorization Approval Medication: HUMIRA *CF* PEN 40 MG/0.4ML SC PNKT Authorization Effective Date: 2023 Authorization Expiration Date: 01/20/2024 Approved Dose/Quantity: 4 per 28 days Reference #: [place]arrison: [id number] Insurance Company: [facility] - Expected CoPay: $0.00 CoPay Card Available: No Financial Assistance Needed: no Which Pharmacy is filling the prescription: [facility] [place] [address] [facility] Notified: Yes Patient Notified: Yes * Telephone Encounter - Jewels Frank - 01/21/2023 7:54 AM CDT PA Initiation Medication: HUMIRA *CF* PEN 40 MG/0.4ML SC PNKT Insurance Company: [facility] - Pharmacy Filling the Rx: [facility] [place] [address] [facility] Filling Pharmacy Phone: Filling Pharmacy Fax: Start Date: 01/21/2023 Garrison: [id number] * Telephone Encounter - Jewels Frank - 01/21/2023 7:53 AM CDT Images from the original note were not included. Prior Authorization Approval Medication: HUMIRA *CF* PEN-CD/UC/HS STARTER 80 MG/0.8ML SC PNKT Authorization Effective Date: 01/19/2023 Authorization Expiration Date: 01/20/2024 Approved Dose/Quantity: 3 for 28 days Reference #: [place]: [id number] Insurance Company: [employer] - Expected CoPay: $0.00 CoPay Card Available: No Financial Assistance Needed: no Which Pharmacy is filling the prescription: [facility] - [place], [place] - [address] Pharmacy Notified: No Patient Notified: No * Telephone Encounter - Jewels Frank - 01/19/2023 7:28 AM CDT Negative TB test sent to insurance. * Telephone Encounter - Jewels Frank - 01/19/2023 7:28 AM CDT PA Initiation Medication: HUMIRA *CF* PEN-CD/UC/HS STARTER 80 MG/0.8ML SC PNKT Insurance Company: [employer] [place] - Pharmacy Filling the Rx: [facility] - [place], [place] - [facility] Filling Pharmacy Phone: Filling Pharmacy Fax: Start Date: 01/16/2023 * Telephone Encounter - Jewels Frank - 01/16/2023 1:56 PM CDT Insurance requesting to know if TB test are negative or positive. Lab pending, will update insurance when labs are back documented in this encounter Plan of Treatment Upcoming Encounters Date Type Department Care Team (Late st Contact Info) Description 08/10/2023 8:30 AM HISTORY INSTRUCTOR Office Visit [facility] [address]rd [place] [address] Sobeida Oden PA-C [address] [place] [address] documented as of this encounter Visit Diagnoses Not on filedocumented in this encounter Additional Health Concerns Assessment Noted Time PHQ-9 Depression Total Score: 8 01/31/20 18 7:19 AM CDT documented as of this encounter Care Teams Cabana Attendant Relationship Specialty Start Date End Date Andreina Vegas MD [address] [place] [address] PCP - General memorial counselor 11/24/22 Andreina Vegas MD [address] [place] [address] Assigned OBGYN Provider 04/06/20 documented as of this encounter
--- OUTSIDE RECORDS SUMMARY | 2023-06-22 20:47 | XMS_ITS | Encounter Summary ---
Author Name Unknown Organization [facility] Address [address] [place] [address]. [place] [address] Care Team Providers Care Blending Machine Operator Name Role Phone Andreina Vegas MD Unavailable [phone] Andreina Vegas MD Primary Care Provider Encounter Details Date Type Department Care Team (Late Contact Info) Description 01/16/2023 12:[address] [facility] [address] [address] Hidradenitis suppurativa Social History Tobacco Use Types Packs/Day Years [...] (Late Contact Info) Description 08/10/2023 8:30 AM QUALITY ASSURANCE ANALYST Office Visit [facility] [address] [place] [address] Sobeida Oden PA-C [address] [place] [address] documented as of this encounter Procedures Procedure Name Priority Date/Time Associated Diagnosis Comments QUANTIFERON TB GOLD PLUS Routine 01/16/2023 11:50 AM CDT Hidradenitis suppurativa QUANTIFERON TB GOLD PLUS PURPLE TUBE Routine 01/16/2023 11:50 AM CDT Hidradenitis suppurativa QUANTIFERON TB GOLD PLUS YELLOW TUBE Routine 01/16/2023 11:50 AM CDT Hidradenitis suppurativa QUANTIFERON TB GOLD PLUS GREEN TUBE Routine 01/16/2023 11:50 AM CDT Hidradenitis suppurativa QUANTIFERON TB GOLD PLUS ORTIZ TUBE Routine 01/16/2023 11:50 AM CDT Hidradenitis suppurativa QUANTIFERON-TB GOLD PLUS Routine 01/16/2023 11:50 AM CDT Hidradenitis suppurativa CBC WITH PLATELETS AND DIFFERENTIAL Routine 01/16/2023 11:50 AM CDT Hidradenitis suppurativa HEPATITIS B SURFACE ANTIBODY Routine 01/16/2023 11:50 AM CDT Hidradenitis suppurativa CBC WITH PLATELETS & DIFFERENTIAL Routine 01/16/2023 11:50 AM CDT Hidradenitis suppurativa HEPATITIS C ANTIBODY Routine 01/16/2023 11:50 AM CDT Hidradenitis suppurativa HEPATITIS B SURFACE ANTIGEN Routine 01/16/2023 11:50 AM CDT Hidradenitis suppurativa HEPATITIS B CORE ANTIBODY Routine 01/16/2023 11:50 AM CDT Hidradenitis suppurativa COMPREHENSIVE METABOLIC PANEL Routine 01/16/2023 11:50 AM CDT Hidradenitis suppurativa documented in this encounter Results * Quantiferon TB Gold Plus (01/16/2023 11:50 AM CDT) Quantiferon-TB Gold Plus Negative Negative 01/18/2023 10:12 PM CDT [facility]/PROT/END O Comment: No interferon gamma response to M.tuberculosis antigens was detected. Infection with M.tuberculosis is unlikely, however a single negative result does not exclude infection. In patients at high risk for infection, a second test should be considered in accordance with the 2017 ATS/IDSA/CDC Clinical Pract ice Guidelines for Diagnosis of Tuberculosis in Adults and Children TB1 Ag minus Nil Value 0.00 IU/mL 01/18/2023 10:12 PM CDT [facility]/PROT/END O TB2 Ag minus Nil Value 0.00 IU/mL 01/18/2023 10:12 PM CDT [facility]/END O Mitogen minus Nil Result 10.00 IU/mL 01/18/2023 10:12 PM CDT [facility]/PROT/END O Nil Result 0.00 IU/mL 01/18/2023 10:12 PM CDT [facility]/PROT/END O Blood STRUCTURE OF LEFT UPPER LIMB / Unknown Venipuncture / Unknown 01/16/2023 11:50 AM CDT 01/16/2023 11:50 AM CDT Neela Owens MD LAB - MICRO GENER AL ORDERABLES [facility] CORE/PROT/ENDO [facility] Special[facility] Core/Prot/Endo [address] [facility], [address] [address], [facility] [phone] * Quantiferon TB Gold Plus Purple Tube (01/16/2023 11:50 AM CDT) Pathologist [facility] Quantiferon Mitogen 10.00 IU/mL 01/18/2023 2:18 PM CDT [facility] CORE/PROT/ENDO Blood STRUCTURE OF LEFT UPPER LIMB / Unknown Venipuncture / Unknown 01/16/2023 11:50 AM CDT 01/16/2023 11:50 AM CDT Neela Owens MD LAB - MICRO GENER AL ORDERABLES [facility] SPECIALTY CORE/PROT/ENDO [facility] Specialty Core/Prot/Endo [address] [facility] Unit [facility], Room [address] [phone] * Quantiferon TB Gold Plus Yellow Tube (01/16/2023 11:50 AM CDT) Quantiferon TB2 Tube 0.00 01/18/2023 12:55 PM CDT [facility]/PROT/ENDO Blood STRUCTURE OF LEFT UPPER LIMB / Unknown Venipuncture / Unknown 01/16/2023 11:50 AM CDT 01/16/2023 11:50 AM CDT Neela Owens MD LAB - MICRO GENER AL ORDERABLES Performing Organization Address City/[facility]/ZIP Co de Phone Number [facility] SPECIAL[facility] CORE/PROT/ENDO Specialty Core/Prot/Endo [address] [facility], [address] [phone] * Quantiferon TB Gold Plus Green Tube (01/16/2023 11:50 AM CDT) Quantiferon TB1 Tube 0.00 IU/mL 01/18/2023 12:45 PM CDT [facility] CORE/PROT/ENDO Blood STRUCTURE OF LEFT UPPER LIMB / Unknown Venipuncture / Unknown 01/16/2023 11:50 AM CDT 01/16/2023 11:50 AM CDT Neela Owens MD LAB - MICRO GENER AL ORDERABLES [facility] SPECIALTY CORE/PROT/ENDO [facility] Specialty Core/Prot/Endo [address] [facility] Unit [facility], [address] [phone] * Quantiferon TB Gold Plus Ortiz Tube (01/16/2023 11:50 AM CDT) Pathologist [facility] Quantiferon Nil Tube 0.00 IU/mL 01/18/2023 1:03 PM CDT SPECIALTY CORE/PROT/ENDO Blood STRUCTURE OF LEFT UPPER LIMB / Unknown Venipuncture / Unknown 01/16/2023 11:50 AM CDT 01/16/2023 11:50 AM CDT Neela Owens MD LAB - MICRO GENER AL ORDERABLES SPECIALTY CORE/PROT/ENDO Specialty Core/Prot/Endo [address] [facility], [address] [phone] * CBC with platelets and differential (01/16/2023 11:50 AM CDT) [facility] WBC Count 8.8 4.0 - 11.0 10e3/uL 01/16/2023 11:53 AM CDT [facility] RBC Count 4.66 3.80 - 5.20 10e6/uL 01/16/2023 11:53 AM CDT [facility] Hemoglobin 12.5 11.7 - 15.7 g/dL 01/16/2023 11:53 AM CDT [facility] Hematocrit 38.9 35.0 - 47.0 % 01/16/2023 11:53 AM CDT [facility] MCV 84 78 - 100 fL 01/16/2023 11:53 AM CDT [facility] MCH 26.8 26.5 - 33.0 pg 01/16/2023 11:53 AM CDT [facility] MCHC 32.1 31.5 - 36.5 g/dL 01/16/2023 11:53 AM CDT [facility] RDW 13.4 10.0 - 15.0 % 01/16/2023 11:53 AM CDT [facility] Platelet Count 324 150 - 450 10e3/uL 01/16/2023 11:53 AM CDT [facility] % Neutrophils 62 % 01/16/2023 11:53 AM CDT [facility] % Lymphocytes 28 % 01/16/2023 11:53 AM CDT [facility] % Monocytes 6 % 01/16/2023 11:53 AM CDT [facility] % Eosinophils 2 % 01/16/2023 11:53 AM CDT [facility] % Basophils 1 % 01/16/2023 11:53 AM CDT [facility] % Immature Granulocytes 1 % 01/16/2023 11:53 AM CDT [facility] NRBCs per 100 WBC 0 <1 /100 023 11:53 AM CDT [facility] Absolute Neutrophils 5.5 1.6 - 8.3 10e3/uL 01/16/2023 11:53 AM CDT [facility] Absolute Lymphocytes 2.5 0.8 - 5.3 10e3/uL 01/16/2023 11:53 AM CDT [facility] Absolute Monocytes 0.5 0.0 - 1.3 10e3/uL 01/16/2023 11:53 AM CDT [facility] Absolute Eosinophils 0.2 0.0 - 0.7 10e3/uL 01/16/2023 11:53 AM CDT [facility] Absolute Basophils 0.0 0.0 - 0.2 10e3/uL 01/16/2023 11:53 AM CDT [facility] Absolute Immature Granulocytes 0.1 <=0.4 10e3/uL 01/16/2023 11:53 AM CDT [facility] Absolute NRBCs 0.0 e3/uL 01/16/2023 11:53 AM CDT [facility] Blood STRUCTURE OF LEFT UPPER LIMB / Unknown Venipuncture / Unknown 01/16/2023 11:50 AM CDT 01/16/2023 11:50 AM CDT Neela Owens MD LAB - BLOOD ORDER JAMES [facility] [address] [place] [address] * Hepatitis B core antibody (01/16/2023 11:50 AM CDT) Hepatitis B Core Antibody Total Nonreactive Nonreactive 01/16/2023 5:13 PM CDT [facility] C[facility]/PROT/EN DO Blood STRUCTURE OF LEFT UPPER LIMB / Unknown Venipuncture / Unknown 01/16/2023 11:50 AM CDT 01/16/2023 11:50 AM CDT Neela Owens MD LAB - BLOOD ORDER JAMES [facility] CORE/PROT/ENDO [facility] Specialty Core/Prot/Endo [address] [facility], [address] [phone] * Hepatitis C antibody (01/16/2023 11:50 AM [...] [facility] SPECIALTY CORE/PROT/ENDO [facility] Specialty Core/Prot/Endo [address] [facility], [address] [phone] * Hepatitis B surface antigen (01/16/2023 11:50 AM CDT) Hepatitis B Surface Antigen Nonreactive Nonreactive 01/16/2023 5:13 PM CDT [facility] CORE/PROT/EN DO Blood STRUCTURE OF LEFT UPPER LIMB / Unknown Venipuncture / Unknown 01/16/2023 11:50 AM CDT 01/16/2023 11:50 AM CDT Neela Owens MD LAB - BLOOD ORDER JAMES Performing Organization Address [facility]/ZIP Co de Phone Number [facility] SPECIALTY CORE/PROT/ENDO Specialty Core/Prot/Endo [address] [facility], [address] [phone] * Hepatitis B Surface Antibody (01/16/2023 11:50 AM CDT) Hepatitis B Surface Antibody Instrument Value 272.88 [...] Owens MD LAB - BLOOD ORDER JAMES Performing Organization Address [facility]/ZIP Co de Phone Number [facility] SPECIAL[facility] CORE/PROT/ENDO Specialty Core/Prot/Endo [address] [facility], [address] [phone] * (ABNORMAL) Comprehensive metabolic panel (01/16/2023 11:50 AM CDT) Pathologist [facility] Sodium 137 136 - 145 mmol/L 01/16/2023 12:22 PM CDT [facility] Potassium 4.4 3.4 - 5.3 mmol/L 01/16/2023 12:22 PM CDT [facility] Chloride 102 98 - 107 mmol/L 01/16/2023 12:22 PM CDT [facility] Carbon Dioxide (CO2) 26 22 - 29 mmol/L 01/16/2023 12:22 PM CDT [facility] Anion Gap 9 7 - 15 mmol/L 01/16/2023 12:22 PM CDT [facility] Urea Nitrogen 9.7 6.0 - 20.0 mg/dL 01/16/2023 12:22 PM CDT [facility] Creatinine 0.63 0.51 - 0.95 mg/dL 01/16/2023 12:22 PM CDT [facility] Calcium 9.4 8.6 - 10.0 mg/dL 01/16/2023 12:22 PM CDT [facility] Glucose 123(H) 70 - 99 mg/dL 01/16/2023 12:22 PM CDT [facility] Alkaline Phosphatase 94 35 - 104 U/L 01/16/2023 12:22 PM CDT [facility] AST 17 0 - 45 U/L 01/16/2023 12:22 PM CDT [facility] Comment:Reference intervals for this test were updated on 11/24/2022 to more accurately reflect our healthy population. There may be differences in the flagging of prior results with similar values performed with this method. Interpretation of those prior results can be made in the context of the updated reference intervals. ALT 17 0 - 50 U/L 01/16/2023 12:22 PM CDT [facility] Comment:Reference intervals for [...] - 8.3 g/dL 01/16/2023 12:22 PM CDT [facility] Albumin 4.3 3.5 - 5.2 g/dL 01/16/2023 12:22 PM CDT [facility] Bilirubin Total 0.6 <=1.2 mg/dL 01/16/2023 12:22 PM CDT [facility] GFR Estimate >90 >60 mL/min/1. 73m2 01/16/2023 12:22 PM T [facility] Blood STRUCTURE OF LEFT UPPER LIMB / Unknown Venipuncture / Unknown 01/16/2023 11:50 AM CDT 01/16/2023 11:50 AM CDT Neela Owens MD LAB - BLOOD ORDER [facility] [place] [address] [facility] 1st [place] [address] documented in this encounter Visit Diagnoses Diagnosis Hidradenitis suppurativa Hidradenitis documented in this encounter Additional Health Concerns Assessment Noted Time PHQ-9 Depression Total Score: 8 01/31/20 18 7:19 AM CDT documented as of this encounter Care Teams Blending Machine Operator Relationship Specialty Start Date End Date Andreina Vegas MD [address] [place] [address] PCP - General dairy scientist 11/24/22 Andreina Vegas MD [address] [place] [address] Assigned OBGYN Provider 04/06/20 documented as of this encounter
--- OUTSIDE RECORDS SUMMARY | 2023-06-22 20:48 | XMS_ITS | Encounter Summary ---
Author Name Unknown Organization [place] Address [facility] [facility] [address] Care Team Providers Care Impression Printer Name Role Phone No Ref-Primary, Physician Primary Care Provider Andreina Vegas MD Unavailable [phone] Reason for Visit * Reason Onset Date Comments Refill Request 09/01/2022 Encounter Details Date Type Department Care Team (Late st Contact Info) Description 09/01/2022 MyC Refill [address] [address] Andreina Vegas MD [address] [place] [address] Refill Request Social History Tobacco Use Types Packs/Day Years Used Date Smoking Tobacco: Never Smokeless Tobacco: Never Alcohol Use Standard Drinks/Week Comments Yes 0 (1 standard drink = 0.6 oz pur e alcohol) occas. use PHQ-2 Answer Date Recorded PHQ-2 Score 0 12/07/2020 Sex and Gender Information Value Date Recorded Sex Assigned at Not on file Gender Identity Not on file Sexual Orientation Not on file COVID-19 Exposure Response Date Recorded In the last 10 days, have yo u been in contact with someone who was confirmed or suspected to have Coronavirus/COVID-19? Unable to assess 08/08/2022 9:30 AM BONE GRINDER documented as of this encounter Miscellaneous Notes * Telephone Encounter - Michelle Schroeder RN - 09/01/2022 8:57 AM CDT Prescription approved per [facility] Refill Protocol. Pt has an appt on 10/09/22. Michelle Viramontes, RN documented in this encounter Plan of Treatment Upcoming Encounters Date Type Department Care Team (Late st Contact Info) Description 08/10/2023 8:30 AM BONE GRINDER Office Visit [facility] [address] [place] [address] Sobeida Oden PA-C [address] [place] [phone] documented as of this encounter Visit Diagnoses Diagnosis Hidradenitis suppurativa Hidradenitis documented in this encounter Additional Health Concerns Assessment Noted Time PHQ-9 Depression Total Score: 8 01/31/20 18 7:19 AM CDT documented as of this encounter Care Teams Impression Printer Relationship Specialty Start Date End Date No Ref-Primary, Physician PCP - General 01/29/18 11/23/22 Andreina Vegas MD [address] [place] [address] Assigned OBGYN Provider 04/06/20 documented as of this encounter
--- OUTSIDE RECORDS SUMMARY | 2023-06-22 20:48 | XMS_ITS | Encounter Summary ---
Author Name Unknown Organization [place] Address [address] [facility] [place] [address] Care Team Providers Care [employer] Construction Supervisor Name Role Phone No Ref-Primary, Physician Primary Care Provider Andreina Vegas MD Unavailable [phone] Encounter Details Date Type Department Care Team (Latest Contact Info) Description 10/10/2022 Travel Social History Tobacco Use Types Packs/Day [...] suspected to have Coronavirus/COVID-19? No / Unsure 10/10/2022 8:10 AM CDT documented as of this encounter Plan of Treatment Upcoming Encounters Date Type Department Care Team (Late st Contact Info) Description 08/10/2023 8:30 AM CONTAINER MAKER Office Visit [facility] [place] [id number] [facility] 3rd [place] [address] Sobeida Oden PA-C [address] [place] [phone] documented as of this encounter Visit Diagnoses Not on filedocumented in this encounter Additional Health Concerns Assessment Noted Time PHQ-9 Depression Total Score: 8 01/31/20 18 7:19 AM CDT documented as of this encounter Care Teams [employer] Construction Supervisor Relationship Specialty Start Date End Date No Ref-Primary, Physician PCP - General 01/29/18 11/23/22 Andreina Vegas MD [address] [place] [address] Assigned OBGYN Provider 04/06/20 documented as of this encounter
--- OUTSIDE RECORDS SUMMARY | 2023-06-22 20:48 | XMS_ITS | Encounter Summary ---
Author Name Unknown Organization [place] Address [address] [place] [address] Care Team Providers Care Cyber Engineer Name Role Phone No Ref-Primary, Physician Primary Care Provider Andreina Vegas MD Unavailable [phone] Encounter Details Date Type Department Care Team (Latest Contact Info) Description 08/08/2022 Travel Social History Tobacco Use Types Packs/Day [...] Coronavirus/COVID-19? Unable to assess 08/08/2022 9:30 AM MEAT CARRIER documented as of this encounter Plan of Treatment Upcoming Encounters Date Type Department Care Team (Late st Contact Info) Description 08/10/2023 8:30 AM MEAT CARRIER Office Visit [facility] [address] 3rd [place] [address] Sobeida Oden PA-C [address] [place] [phone] documented as of this encounter Visit Diagnoses Not on filedocumented in this encounter Additional Health Concerns Assessment Noted Time PHQ-9 Depression Total Score: 8 01/31/20 18 7:19 AM CDT documented as of this encounter Care Teams Cyber Engineer Relationship Specialty Start Date End Date No Ref-Primary, Physician PCP - General 01/29/18 11/23/22 Andreina Vegas MD [address] [place] [address] Assigned OBGYN Provider 04/06/20 documented as of this encounter
--- OUTSIDE RECORDS SUMMARY | 2023-06-22 20:48 | XMS_ITS | Encounter Summary ---
Author Name Unknown Organization [place] Address [address] [place] [address] Care Team Providers Care Manager School Name Role Phone No Ref-Primary, Physician Primary Care Provider Andreina Vegas MD Unavailable [phone] Reason for Referral * Consultation (Priority: 1-2 Weeks) - Pending Review Specialty Diagnoses / Procedures Referred By Jose Ramon leslie Referred To Contact Dermatology Diagnoses Hidradenitis suppurativa Andreina Veags MD [address] [place] [address] [facility] [address] [facility] [address] [place] [address] Referral ID Status Reason Start Date Expiration Date V isits Requested Visits Authorized [id number] Pending Review 10/12/2022 10/12/2023 1 1 Question Answer Referral Type: General Dermatology Reason for Referral: Other My Clinical Question Is: Hidradenitis of the groin, mostly, progressive despite topical clinda and oral doxy. Vulvar specialist, please. Preferred Location: Select an [facility] Location Preferred Location: [facility] Inst[facility] to [facility] care as prescribed by the provider. If you don? t hear from a sales representative printing within 2 business days, please call the number listed above. Additional Information: Needs vulvar derm specialist Comments Please be aware that coverage of these services is subject to the terms and limitations of your health insurance plan. Call member services at your health plan with any benefit or coverage questions. [facility] will call you to coordinate your care as prescribed by the provider. If you don? t hear from a sales representative printing within 2 business days, please call the number listed above. Reason for Visit * Reason Comments Physical Last pap was 1 NIL with negative HPV, has mammogram tomorrow, and colonoscopy scheduled for November 2022 Derm Problem Patient reports red , painful spots in groin area, patient has had them drained before. She is currently using Doxycycline for this, and it does not seem to be helping. Encounter Details Date Type Department Care Team (Late st Contact Info) Description 10/09/2022 1:30 PM CDT Office Visit [facility] [address] [place] [phone] Andreina Vegas MD [address] [place] [address] Women's annual routine gynecological examination (Primary Dx); Hidradenitis suppurativa; Morbid obesity (H); History of DVT (deep vein thrombosis); Mixed anxiety depressive disorder Social History Tobacco Use Types Packs/Day Years Used Date Smoking Tobacco: Never Smokeless Tobacco: Never Tobacco Cessation:Counseling Given: Not Answered Alcohol Use Standard Drinks/Week Comments Yes 0 [...] AM CDT documented as of this encounter Last Filed Vital Signs Vital Sign Reading Time Taken Comments Blood Pressure 118/74 10/09/2022 1:03 PM CDT Pulse - - Temperature - - Respiratory Rate - - Oxygen Saturation - - Inhaled Oxygen Concentration - - Weight 104.5 kg (230 lb 6.4 oz) 10/09/2022 1:03 PM CDT Height 157.5 cm (5' 2) 10/09/2022 1:03 PM CDT Body Mass Index 42.14 10/09/2022 1:03 PM CDT documented in this encounter Progress Notes * Andreina Vegas MD - 10/09/2022 1:30 PM CDT SUBJECTIVE: Vani is a 47 year old female who presents for annual exam. No LMP recorded. Patient has had an ablation.. Menses are??infrequent due to ablation, and light tooccasionally heavy but short when they do occur. Using tubal ligation??for contraception. 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 Besides routine health maintenance, she would like to discuss progression of hidradenitis suppurativa. We have previously treated this with topical clindamycin and then the addition of oral doxycycline, which worked better than oral clindamycin. For time, this helped with her symptoms. She then developed a recurrent and worsening lesion in the right groin, which was progressive and on the panty line. This was treated several times by unroofing the lesions and allowing them to heal by secondary intent. This is now healed well and she has not had any further difficulties in this area. She switched to fitted boxer short type underwear, in an attempt to decrease friction. Despite all this, she is finding that her lesions are back and are now progressively worse. She has 1 lesion on the right breast, multiple lesions in the groin, and 1 lesion on the inside of the left thigh. GYNECOLOGIC HISTORY: Vani??is??sexually active with 1??male??partner(s) and??is??currently in??a??monogamous relationship. ? History sexually transmitted infections:No STD history ?? History of abnormal Pap smear:??NO - age 30-65 PAP every 5 years with negative HPV co-testing recommended Family history of breast CA:??No Family history of uterine/ovarian CA:??No ?? Family history of colon CA:??Yes (Please explain):??paternal GM HISTORY: OB History Para Term AB Living 5 4 0 0 1 0 SAB IAB Ectopic Multiple Live Births 1 0 0 0 0 # Outcome Date GA Lbr Serge/2nd Weight Sex Delivery Anes PTL Lv 5 SAB 4 Para -SEC 3 Para -SEC 2 Para -SEC 1 Para Past Medical History: Diagnosis Date ??? Depressive disorder ??? DUB (dysfunctional uterine bleeding) s/p ablation, neg emb 02/2015 ??? DVT (deep vein thrombosis) in 1 during and one after delivery Past Surgical History: Procedure Laterality Date ??? HC ABLATION, ENDOMETRIAL, THERMAL, W/O HYSTEROSCOPIC GUIDANCE Novasure ??? TUBAL LIGATION Family History Problem Relation Age of Onset ??? Diabetes Father ??? Hypertension Father ??? Diabetes Maternal Grandmother ??? Colon Cancer Paternal Grandmother ??? Coronary Artery Disease No family hx of ??? Hyperlipidemia No family hx of ??? Cerebrovascular Disease No family hx of ??? Breast Cancer No family hx of ??? Prostate Cancer No family hx of ??? Other Cancer No family hx of ??? Depression No family hx of ??? Anxiety Disorder No family hx of ??? Mental Illness No family hx of ??? Substance Abuse No family hx of ??? Anesthesia Reaction No family hx of ??? Asthma No family hx of ??? Osteoporosis No family hx of ??? Genetic Disorder No family hx of ??? Thyroid Disease No family hx of ??? Obesity No family hx of ??? Unknown/Adopted No family hx of Social History Socioeconomic History ??? Marital status: Spouse name: None ??? Number of children: None ??? Years of education: None ??? Highest education level: None Tobacco Use ??? Smoking status: Never ??? Smokeless tobacco: Never Substance and Sexual Activity ??? Alcohol use: Yes Alcohol/week: 0.0 standard drinks of alcohol Comment: occas. use ??? Drug use: No ??? Sexual activity: Yes Partners: Male control/protection: Female Surgical Comment: TL, ablation Current Outpatient Medications: ??? citalopram (CELEXA) 10 MG tablet, Take 1 tablet (10 mg) by mouth daily, Disp: 90 tablet, Rfl: 3 ??? diazepam (VALIUM) 5 MG/ML solution, Take by mouth every 8 hours as needed for anxiety, Disp: , Rfl: ??? doxycycline hyclate (VIBRAMYCIN) 100 MG capsule, Take 1 capsule (100 mg) by mouth daily, Disp: 90 capsule, Rfl: 0 ??? Rivaroxaban (XARELTO PO), Take 10 mg by mouth daily, Disp: , Rfl: ??? clindamycin (CLEOCIN T) 1 % external solution, Apply topically 2 times daily (Patient not taking: Reported on 10/09/2022), Disp: 60 mL, Rfl: 11 Allergies Allergen Reactions ??? Demerol [Meperidine] Nausea and Vomiting Past medical, surgical, social and family history were reviewed and updated in EPIC. ROS: Negative other than as noted above. OBJECTIVE: EXAM: BP 118/74 Ht 1.575 m (5' 2) Wt 104.5 kg (230 lb 6.4 oz) BMI 42.14 kg/m?? BMI: Body mass index is 42.14 kg/m??. General: Alert and oriented, no distress. Psychiatric: Mood and affect within normal limits. Skin: Warm and dry, notable for lesions consistent with hidradenitis under the breasts bilaterally,on the surface of the right breast, under the pannus, and scattered throughout the groin and mons pubis. There is also a lesion on the inside of the left thigh. Breasts: Symmetric, no skin changes other than those noted above. No dominant masses bilaterally. Lymph: No cervical, supraclavicular, infraclavicular, axillary or inguinal lymphadenopathy palpable. Abdomen: Soft, nontender, no hepatosplenomegaly, no rebound or guarding, no masses, no hernias. Vulva: Lesions as noted above, normal female hair distribution, no inguinal adenopathy. Urethra: Midline, non-tender, well supported, no discharge Vagina: Well-estrogenized, no abnormal discharge, no lesions Uterus: anteverted, smooth contour, without enlargement, mobile, and without tenderness Ovaries: No masses appreciated, non-tender, mobile Rectal Exam: deferred Musculoskeletal: extremities normal COUNSELING: Reviewed preventive health counseling, as reflected in patient instructions Regular exercise Healthy diet/nutrition (Rebecca)menopause management reports that she has never smoked. She has never used smokeless tobacco. ASSESSMENT/PLAN: 47 year old female with satisfactory annual exam (Z01.419) Women's annual routine gynecological examination (primary encounter diagnosis) Comment: Plan: She is not due for a Pap until 2025. Colonoscopy is scheduled for November, and she has a mammogram scheduled for tomorrow. She should return yearly. (L73.2) Hidradenitis suppurativa Comment: Was stable, but now unfortunately is worsening despite the use of topical and oral antibiotics Plan: clindamycin (CLEOCIN T) 1 % external solution, Adult Dermatology Referral She had actually discontinued her clindamycin because her insurance would not allow her to refill it, so a new prescription was sent today. She will restart this, continue oral doxycycline, and referral to vulvar dermatology at the [facility] was placed today, to explore other options including Biologics. (E66.01) Morbid obesity (H) Comment: Plan: Impacts her hidradenitis, which she is aware of. Keep working on diet and exercise as able. (Z86.078) History of DVT (deep vein thrombosis) Comment: Plan: Chronically anticoagulated on Xarelto, which makes surgical treatment for extensive hidradenitis more complicated. She has tolerated unroofing of fairly extensive lesions in the past under local anesthetic, but today lesions are too widespread to consider that, so plan is dermatology referralas noted above. She has a history of mixed anxiety and depression, very well controlled on her current dose of Celexa 10 mg daily with sparing use of Valium 5 mg as needed. She uses fewer than 30 tablets in a year, so refill was sent for both medications. Andreina Vegas MD documented in this encounter Nursing Notes * Eveline Chambers, [facility] - 10/09/2022 1:30 PM CDT Chief Complaint Patient presents with ??? Physical Last pap was 11/02/20 NIL with negative HPV. ??? Derm Problem Patient reports red, painful spots in groin area, patient has had them drained before. She is currently using Doxycycline for this, and it does not seem to be helping. Initial BP 118/74 Ht 1.575 m (5' 2) Wt 104.5 kg (230 lb 6.4 oz) BMI 42.14 kg/m?? Estimated body mass index is 42.14 kg/m?? as calculated from the following: Height as of this encounter: 1.575 m (5' 2). Weight as of this encounter: 104.5 kg (230 lb 6.4 oz). BP completed using cuff size: large Questioned patient about current smoking habits. Pt. has never smoked. The following HM Due: mammogram colonoscopy/FIT Eveline Chambers CMA documented in this encounter Plan of Treatment Upcoming Encounters Date Type Department Care Team (Late st Contact Info) Description 08/10/2023 8:30 AM ENGAGEMENT SPECIALIST Office Visit [facility] D[facility] [place] [address] [facility] 3rd [place] [phone] Sobeida Oden PA-C [address] [place] [address] Scheduled Referrals Name Type Priority Associated Diagnoses Orde r Schedule Adult Dermatology Referral Referral Priority: 1-2 Weeks Hidradenitis suppurativa Expected: 10/12/2022 (Approximate), Expires: 10/13/2023 documented as of this encounter Visit Diagnoses Diagnosis Women's annual routine gynecological examination- Primary Hidradenitis suppurativa Hidradenitis Morbid obesity (H) Morbid obesity History of DVT (deep vein thrombosis) Personal history of venous thrombosis and embolism Mixed anxiety depressive disorder Dysthymic disorder documented in this encounter Additional Health Concerns Assessment Noted Time PHQ-9 Depression Total Score: 8 01/31/20 18 7:19 AM CDT documented as of this encounter Care Teams Manager School Relationship Specialty Start Date End Date No Ref-Primary, Physician PCP - General 01/29/18 11/23/22 Andreina Vegas MD [address] [place] [address] Assigned OBGYN Provider 04/06/20 documented as of this encounter
--- OUTSIDE RECORDS SUMMARY | 2023-06-22 20:48 | XMS_ITS | Encounter Summary ---
Author Name Unknown Organization [place] Address [address] [place] [address] Care Team Providers Care Lasting Room Supervisor Name Role Phone No Ref-Primary, Physician Primary Care Provider Andreina Vegas MD Unavailable [phone] Andreina Vegas MD Primary Care Provider Neela Owens MD Unavailable [phone] Reason for Visit * Reason Comments Medication Refill Encounter Details Date Type Department Care Team (Late Contact Info) Description 10/27/2022 Refill [facility] [address] [facility] [address] [place] [address] Andreina Vegas MD [address] [place], [place] [phone] Medication Refill Social History Tobacco Use Types Packs/Day Years [...] st Contact Info) Description 08/10/2023 8:30 AM RESOURCE PARAPROFESSIONAL Office Visit [facility] [place] [address] [place] [phone] Sobeida Oden PA-C [address] [place] [address] documented as of this encounter Visit Diagnoses Diagnosis Hidradenitis suppurativa Hidradenitis documented in this encounter Additional Health Concerns Assessment Noted Time PHQ-9 Depression Total Score: 8 01/31/20 18 7:19 AM CDT documented as of this encounter Care Teams Lasting Room Supervisor Relationship Specialty Start Date End Date No Ref-Primary, Physician PCP - General 01/29/18 11/23/22 Andreina Vegas MD [address] [place] [address] PCP - General crawler tractor operator 11/24/22 Andreina Vegas MD [address] [place] [address] Assigned OBGYN Provider 04/06/20 Neela Owens MD [address] [facility] [place] [place] [address] Assigned Surgical Provider 01/24/23 documented as of this encounter
--- OUTSIDE RECORDS SUMMARY | 2023-06-22 20:48 | XMS_ITS | Encounter Summary ---
Author Name Unknown Organization [place] Address [address] [facility] [place] [address] Care Team Providers Care Harness Installer Name Role Phone No Ref-Primary, Physician Primary Care Provider Andreina Vegas MD Unavailable [phone] Reason for Referral * Consultation (Priority: 1-2 Weeks) - Pending Review Specialty Diagnoses / Procedures Referred By Jose Ramon leslie Referred To Contact Dermatology Diagnoses Hidradenitis suppurativa Andreina Vegas MD [address] [place] [address] Referral ID Status Reason Start Date Expiration Date V isits Requested Visits Authorized [id number] Pending Review 11/04/2022 11/04/2023 1 1 Question Answer Referral Type: General Dermatology Reason for Referral: Rash - [facility] Dr Gordillo at [facility] is preferred but others are ok if they can see her sooner Scheduling Instructions: [facility] will call you to coordinate your care as prescribed by your provider. If you don't hear from a sales representative door to door within 2 business days, please call [phone]. Comments Please be aware that coverage of these services is subject to the terms and limitations of your health insurance plan. Call member services at your health plan with any benefit or coverage questions. [facility] will call you to coordinate your care as prescribed by your provider. If you don't hear from a sales representative door to door within 2 business days, please call [phone]. Reason for Visit * Reason Onset Date Comments Referral 11/04/2022 Encounter Details Date Type Department Care Team (Late st Contact Info) Description 11/04/2022 Telephone [facility] [address] [place] [phone] Andreina Vegas MD [address] [place] [address] Referral Social History Tobacco Use Types Packs/Day Years [...] encounter Miscellaneous Notes * Telephone Encounter - Kasia Self RN - 11/04/2022 3:52 PM CDT Added referral. Kasia Lau AERONAUTICAL PROJECT ENGINEER * Telephone Encounter - Kasia Self RN - 11/04/2022 3:46 PM CDT ----- Message from Andreina Vegas MD sent at 11/04/2022 1:27 PM CDT ----- Regarding: FW: Question about HS Please set up referral to derm at [facility] for this patient with Dr. Gordillo as a priority--if it's too far out, per this note can schedule with anyone sooner and then with Dr. Gordillo later at his first available. Thanks. Andreina Vegas MD ----- Message ----- From: [place]ela Owens MD Sent: 10/20/2022 8:44 AM CDT To: Andreina Vegas MD Subject: RE: Question about HS Dr. Vegas, I agree that it sounds like she needs systemic meds like a TNF. At this point I am booking out veryfar at all clinic sites. Dr. Alexandro Gordillo is by far and away the HS expert at the . You can placean adult dermatology rose grader referral as priority which would get her an appointment to get treatment started- any reducing system operator at the can manage HS with biologics and other agents. If things are severe we can concurrently schedule with Dr. Gordillo for his first available. For vulvar derm, I did have a clinic [facility], but due to clinic space limitations with new hires I'll be losing my clinic time there. Dr. Castro would probably be my first choice for who to schedule these patients with at the [facility]. I see adults at [facility], but they need to havea PCP there to see me at that site, so that's an option for those patients. ----- Message ----- From: Andreina Vegas MD Sent: 10/19/2022 11:14 AM CDT To: Neela Owens MD Subject: Question about HS Dr. Owens, I'm one of the OBGYNs in [place], and this is a patient with worsening hidradenitis suppurativa that initially responded well to topical antibiotics and then addition of orals, but now is flaring frequently despite this. I was told you are quite booked out and that I needed to reach out directlyto see if you could see her; she is willing to go anywhere so if there is a colleague also interested in vulvar derm, I'm happy to refer her elsewhere also. Also I wanted to let you know that I am the person in our group seeing most of our complicated vulvar derm/vulvar pain/complicated recurrent infection patients, and while I haven't needed to refer nora de langel much so far, certainly I would benefit from knowing how and to whom I should refer when a second or third set of eyes is needed. In this patient's case, I am specifically wondering if you think she would be a candidate for biologics or other treatments for refractory hidradenitis suppurativa. Thanks, Andreina Vegas MD documented in this encounter Plan of Treatment Upcoming Encounters Date Type Department Care Team (Late st Contact Info) Description 08/10/2023 8:30 AM FREIGHT INSPECTOR Office Visit [facility] Dermatology Clinic [address] [place] [address] Sobeida Oden PA-C [address] [place] [address] Scheduled Referrals Name Type Priority Associated Diagnoses Orde r Schedule Adult Dermatology Referral Referral Priority: 1-2 Weeks Hidradenitis suppurativa Expected: 11/04/2022 (Approximate), Expires: 11/05/2023 documented as of this encounter Visit Diagnoses Diagnosis Hidradenitis suppurativa- Primary Hidradenitis documented in this encounter Additional Health Concerns Assessment Noted Time PHQ-9 Depression Total Score: 8 01/31/20 18 7:19 AM CDT documented as of this encounter Care Teams Harness Installer Relationship Specialty Start Date End Date No Ref-Primary, Physician PCP - General 01/29/18 11/23/22 Andreina Vegas MD [address] [place] [address] Assigned OBGYN Provider 04/06/20 documented as of this encounter
--- OUTSIDE RECORDS SUMMARY | 2023-06-22 20:48 | XMS_ITS | Encounter Summary ---
Author Name Unknown Organization [place] Address [facility] [place] [address] Care Team Providers Care Mold Chipper Name Role Phone No Ref-Primary, Physician Primary Care Provider Andreina Vegas MD Unavailable [phone] Reason for Referral * Diagnostic Imaging Mammo (Routine) - Pending Review Specialty Diagnoses / Procedures Referred By Jose Ramon leslie Referred To Contact Radiology. Diagnoses Visit for screening mammogram Procedures MA Screening Bilateral w/ Victor Manuel MA Screening Bilateral w/ Victor Manuel Andreina Vegas MD [address] [place] [address] Referral ID Status Reason Start Date Expiration Date V isits Requested Visits Authorized [id number] Pending Review 10/09/2022 10/09/2023 1 1 Reason for Visit * Diagnostic Imaging Mammo (Routine) - Pending Review Specialty Diagnoses / Procedures Referred By Jose Ramon leslie Referred To Contact Radiology. Diagnoses Visit for screening mammogram Procedures MA Screening Bilateral w/ Victor Manuel MA Screening Bilateral w/ Victor ManuelAndreina Godoy MD [address] [place] [address] Referral ID Status Reason Start Date Expiration Date V isits Requested Visits Authorized [id number] Pending Review 10/09/2022 10/09/2023 1 1 Encounter Details Date Type Department Care Team (Latest Contact Info) Description 10/10/2022 8:13 AM CDT - 10/10/2022 11:59 PM CDT Hospital Encounter [facility] [address] [facility], [address] [place] [phone] No Ref-Primary, Physician Andreina Vegas MD [address] [place] [address] Visit for screening mammogram Discharge Disposition: Home or Self Care Social History Tobacco Use Types Packs/Day Years [...] AM CDT documented as of this encounter Medications at Time of Discharge Medication Sig Dispensed Refills Start Date End Date citalopram (CELEXA) 10 MG tabletIndications:Mixe d anxiety depressive disorder Take 1 tablet (10 mg) by mouth daily 90 tablet 3 10/12/2022 clindamycin (CLEOCIN T) 1 % external solutionIndications:Hi dradenitis suppurativa Apply topically 2 times daily 60 mL 11 10/12/2022 diazepam (VALIUM) 5 MG tabletIndications:Mixe d anxiety depressive disorder Take 1 tablet (5 mg) by mouth every 8 hours as needed for anxiety 30 tablet 0 10/12/2022 Rivaroxaban (XARELTO PO) Take 10 mg by mouth daily 0 citalopram (CELEXA) 10 MG tabletIndications:Mixe d anxiety depressive disorder Take 1 tablet (10 mg) by mouth daily 90 tablet 3 05/17/2019 10/12/2022 clindamycin (CLEOCIN T) 1 % external solutionIndications:Hi dradenitis suppurativa Apply topically 2 times daily 60 mL 11 09/01/2022 10/12/2022 diazepam (VALIUM) 5 MG/ML solution Take by mouth every 8 hours as needed for anxiety 0 10/12/2022 doxycycline hyclate (VIBRAMYCIN) 100 MG capsuleIndications:Hid radenitis suppurativa Take 1 capsule (100 mg) by mouth daily 90 capsule 0 09/01/2022 10/20/2022 documented as of this encounter Plan of Treatment Upcoming Encounters Date Type Department Care Team (Late st Contact Info) Description 08/10/2023 8:30 AM SEED DISTRICT SALES MANAGER Office Visit [facility] [address] 3rd [place] [phone] Sobeida Oden PA-C [address] [place] [address] documented as of this encounter Procedures Procedure Name Priority Date/Time Associated Diagnosis Comments MA SCREENING BILATERAL W/ VICTOR MANUEL Routine 10/10/2022 8:37 AM CDT Visit for screening mammogram documented in this encounter Results * MA Screening Bilateral w/ Victor Manuel (10/10/2022 8:37 AM CDT) Anatomical Region Laterality Modality Breast Bilateral Mammography Impressions 10/10/2022 12:37 PM CDT IMPRESSION: ACR BI-RADS Category 1: Negative RECOMMENDED FOLLOW-UP: Annual routine screening mammogram The results and recommendations of this examination will be communicated to the patient. Yony Clarke MD Narrative 10/10/2022 12:37 PM CDT BILATERAL FULL FIELD DIGITAL SCREENING MAMMOGRAM WITH TOMOSYNTHESIS Performed on: 10/10/22 Compared to: 11/06/2020 and 06/03/2018 Technique: ??This study was evaluated with the assistance of Computer-Aided Detection. ??Breast Tomosynthesis was used in interpretation. Findings: The breasts are almost entirely fatty. ??There is no radiographic evidence of malignancy. Andreina Vegas MD IMG MAMMOGRAPHY ES [facility] documented in this encounter Visit Diagnoses Diagnosis Visit for screening mammogram Other screening mammogram documented in this encounter Additional Health Concerns Assessment Noted Time PHQ-9 Depression Total Score: 8 01/31/20 18 7:19 AM CDT documented as of this encounter Care Teams Mold Chipper Relationship Specialty Start Date End Date No Ref-Primary, Physician PCP - General 01/29/18 11/23/22 Andreina Vegas MD [address] [place] [address] Assigned OBGYN Provider 04/06/20 documented as of this encounter
--- OUTSIDE RECORDS SUMMARY | 2023-06-22 20:48 | XMS_ITS | Encounter Summary ---
Author Name Unknown Organization [place] Address [address] [facility] [place] [address] Care Team Providers Care Regional Economic Liaison Name Role Phone No Ref-Primary, Physician Primary Care Provider Andreina Vegas MD Unavailable [phone] Encounter Details Date Type Department Care Team (Latest Contact Info) Description 10/09/2022 Travel Social History Tobacco Use Types Packs/Day [...] suspected to have Coronavirus/COVID-19? No / Unsure 10/09/2022 12:34 PM CDT documented as of this encounter Plan of Treatment Upcoming Encounters Date Type Department Care Team (Late st Contact Info) Description 08/10/2023 8:30 AM MANDREL MAKER Office Visit [facility] [place] [address] [facility] 3rd [place] [address] Sobeida Oden PA-C [address] [place] [address] documented as of this encounter Visit Diagnoses Not on filedocumented in this encounter Additional Health Concerns Assessment Noted Time PHQ-9 Depression Total Score: 8 01/31/20 18 7:19 AM CDT documented as of this encounter Care Teams Regional Economic Liaison Relationship Specialty Start Date End Date No Ref-Primary, Physician PCP - General 01/29/18 11/23/22 Andreina Vegas MD [address] [place] [address] Assigned OBGYN Provider 04/06/20 documented as of this encounter
--- OUTSIDE RECORDS SUMMARY | 2023-06-22 20:48 | XMS_ITS | Encounter Summary ---
Author Name Unknown Organization [place] Address [address] [facility] [place] [address] Care Team Providers Care Vacuum Applicator Operator Name Role Phone No Ref-Primary, Physician Primary Care Provider Andreina Vegas MD Unavailable [phone] Reason for Visit * Reason Comments Medication Refill Encounter Details Date Type Department Care Team (Late st Contact Info) Description 10/18/[address] [address] Andreina Vegas MD [address] [place] [address] Medication Refill Social History Tobacco Use Types [...] encounter Miscellaneous Notes * Telephone Encounter - Lana Wetzel RN - 10/20/2022 11:22 AM CDT Medication is being filled for 1 time refill only due to: awaiting vulvar dermatology appointment. Lana Johnson RN documented in this encounter Plan of Treatment Upcoming Encounters Date Type Department Care Team (Late st Contact Info) Description 08/10/2023 8:30 AM RADIO TELEVISION TECHNICAL DIRECTOR Office Visit [facility] [address] 3rd [place] [phone] Sobeida Oden PA-C [address] [place] [address] documented as of this encounter Visit Diagnoses Diagnosis Hidradenitis suppurativa Hidradenitis documented in this encounter Additional Health Concerns Assessment Noted Time PHQ-9 Depression Total Score: 8 01/31/20 18 7:19 AM CDT documented as of this encounter Care Teams Vacuum Applicator Operator Relationship Specialty Start Date End Date No Ref-Primary, Physician PCP - General 01/29/18 11/23/22 Andreina Vegas MD [address] [place] [address] Assigned OBGYN Provider 04/06/20 documented as of this encounter
--- OUTSIDE RECORDS SUMMARY | 2023-06-22 20:48 | XMS_ITS | Encounter Summary ---
Author Name Unknown Organization [place] Address [address] [facility] [place] [address] Care Team Providers Care Egyptologist Name Role Phone No Ref-Primary, Physician Primary Care Provider Andreina Vegas MD Unavailable [phone] Andreina Vegas MD Primary Care Provider [phone] Neela Owens MD Unavailable [phone] Reason for Visit * Reason Comments Medication Refill Encounter Details Date Type Department Care Team (Late st Contact Info) Description 01/24/[address] [address] Andreina Vegas MD [address] [place] [address] Medication Refill Social History Tobacco Use Types Packs/Day Years Used Date Smoking Tobacco: Never Smokeless Tobacco: Never Alcohol Use Standard Drinks/Week Comments Yes 0 (1 standard drink = 0.6 oz pur e alcohol) occas. use PHQ-2 Answer Date Recorded PHQ-2 Score 0 06/23/2018 Sex and Gender Information Value Date Recorded Sex Assigned at Not on file Gender Identity Not on file Sexual Orientation Not on file documented as of this encounter Miscellaneous Notes * Telephone Encounter - Philly Burns RN - 01/24/2019 2:30 PM CDT Medication is being filled for 1 time refill only due to: future appt noted. Philly Burns RN documented in this encounter Plan of Treatment Upcoming Encounters Date Type Department Care Team (Late st Contact Info) Description 08/10/2023 8:30 AM IMAGING ACCOUNT MANAGER Office Visit [facility] [address]rd [place] [address] Sobeida Oden PA-C [address] [place] [address] documented as of this encounter Visit Diagnoses Diagnosis Mixed anxiety depressive disorder Dysthymic disorder documented in this encounter Additional Health Concerns Assessment Noted Time PHQ-9 Depression Total Score: 8 01/31/20 18 7:19 AM CDT documented as of this encounter Care Teams Egyptologist Relationship Specialty Start Date End Date No Ref-Primary, Physician PCP - General 01/29/18 11/23/22 Andreina Vegas MD [address] [place] [address] PCP - General line service person 11/24/22 Andreina Vegas MD [address] [place] [address] Assigned OBGYN Provider 04/06/20 Neela Owens MD [address] [facility] [place] [address] Assigned Surgical Provider 01/24/23 documented as of this encounter
--- OUTSIDE RECORDS SUMMARY | 2023-06-22 20:48 | XMS_ITS | Encounter Summary ---
Author Name Unknown Organization [place] Address [address] [place] [address] Care Team Providers Care Rn Neonatal Icu Name Role Phone No Ref-Primary, Physician Primary Care Provider Andreina Vegas MD Unavailable [phone] Reason for Visit * Reason Onset Date Comments Call Back 11/05/2022 Pt has referral with priority scheduling 1-2 weeks can we please call back pt to discuss. Pt prefers Neela Owens MD Hidradenitis supplibby [L73.2] Encounter Details Date Type Department Care Team (Late st Contact Info) Description 11/05/[address] [address] Neela Owens MD [address] [facility] [place] [address] Call Back (Pt has referral with priority scheduling 1-2 weeks can we please call back pt to discuss. Pt prefers Neela Owens MD Hidradenitis supplibby [L73.2]/) Social History Tobacco Use Types Packs/Day Years [...] encounter Miscellaneous Notes * Telephone Encounter - Mary Hanson MA - 11/06/2022 11:21 AM CDT Clinic Coordinators- please reach out to patient to schedule an appointment for HS. Dr. Gordillo has an opening on 12/25 at 10:00 am we can offer. Other gordon, schedule next available. * Telephone Encounter - Kaur Camarillo - 11/05/2022 4:37 PM CDT Called and left message. Advised will follow up with scheduling information per recommendations of provider. Kaur Camarillo MA * Telephone Encounter - Yunior De La Paz - 11/05/2022 1:41 PM CDT [facility] Call Center Phone Message May a detailed message be left on voicemail: yes Reason for Call: Pt has referral with priority scheduling 1-2 weeks can we please call back pt to discuss. Pt prefers Neela Owens MD Hidradenitis suppurativa [L73.2] Action Taken: Message routed to: [facility] EC DERM Travel Screening: Not Applicable documented in this encounter Plan of Treatment Upcoming Encounters Date Type Department Care Team (Late st Contact Info) Description 08/10/2023 8:30 AM MICROSOFT DYNAMICS DEVELOPER Office Visit [facility] [place] [address] [facility] 3rd [place] [phone] Sobeida Oden PA-C [address] [place] [id number] documented as of this encounter Visit Diagnoses Not on filedocumented in this encounter Additional Health Concerns Assessment Noted Time PHQ-9 Depression Total Score: 8 01/31/20 18 7:19 AM CDT documented as of this encounter Care Teams Rn Neonatal Icu Relationship Specialty Start Date End Date No Ref-Primary, Physician PCP - General 01/29/18 11/23/22 Andreina Vegas MD [address] [place] [address] Assigned OBGYN Provider 04/06/20 documented as of this encounter
--- OUTSIDE RECORDS SUMMARY | 2023-06-22 20:48 | XMS_ITS | Encounter Summary ---
Author Name Unknown Organization [place] Address [address] [facility] [place] [address] Care Team Providers Care Cardiothoracic Anesthesia Technician Name Role Phone No Ref-Primary, Physician Primary Care Provider Andreina Vegas MD Unavailable [phone] Andreina Vegas MD Primary Care Provider [phone] Neela Owens MD Unavailable [phone] Reason for Visit * Reason Onset Date Comments Refill Request 08/08/2022 Encounter Details Date Type Department Care Team (Late st Contact Info) Description 08/08/2022 MyC Refill [facility] [address] [place] [address] Andreina Vegas MD [address] [place], [place] [phone] Refill Request Social History Tobacco Use Types [...] Coronavirus/COVID-19? Unable to assess 08/08/2022 9:30 AM SUCTION WORKER documented as of this encounter Miscellaneous Notes * Telephone Encounter - Michelle Schroeder RN - 08/08/2022 10:11 AM SUCTION WORKER Pt is overdue for her annual exam. My chart message sent to the pt. Once she makes an appt, we can approve refills. Michelle Viramontes, RN ION WORKER documented in this encounter Plan of Treatment Upcoming Encounters Date Type Department Care Team (Late st Contact Info) Description 08/10/2023 8:30 AM SUCTION WORKER Office Visit [facility] [address]rd [place] [phone] Sobeida Oden PA-C [address] [place] [address] documented as of this encounter Visit Diagnoses Diagnosis Hidradenitis suppurativa Hidradenitis documented in this encounter Additional Health Concerns Assessment Noted Time PHQ-9 Depression Total Score: 8 01/31/20 18 7:19 AM CDT documented as of this encounter Care Teams Cardiothoracic Anesthesia Technician Relationship Specialty Start Date End Date No Ref-Primary, Physician PCP - General 01/29/18 11/23/22 Andreina Vegas MD [address] [place] [address] PCP - General log snaker 11/24/22 Andreina Vegas MD [address] [place] [address] Assigned OBGYN Provider 04/06/20 Neela Owens MD [address] [facility] [place] [address] Assigned Surgical Provider 01/24/23 documented as of this encounter
--- OUTSIDE RECORDS SUMMARY | 2023-06-22 20:48 | XMS_ITS | Encounter Summary ---
Author Name Unknown Organization [place] Address [address] [facility] [place] [address] Care Team Providers Care Middle School Director Name Role Phone No Ref-Primary, Physician Primary Care Provider Andreina Vegas MD Unavailable [phone] Andreina Vegsa MD Primary Care Provider Neela Owens MD Unavailable [phone] Reason for Visit * Reason Comments Medication Refill Encounter Details Date Type Department Care Team (Late st Contact Info) Description 08/08/[address] [address] Andreina Vegas MD [facility] [place] [address] Medication Refill Social History Tobacco [...] Coronavirus/COVID-19? Unable to assess 08/08/2022 9:30 AM THIRD GRADE TEACHER documented as of this encounter Plan of Treatment Upcoming Encounters Date Type Department Care Team (Late st Contact Info) Description 08/10/2023 8:30 AM THIRD GRADE TEACHER Office Visit [facility] [place] [address] [facility] 3rd [place] [phone] Sobeida Oden PA-C [address] [place] [address] documented as of this encounter Visit Diagnoses Diagnosis Hidradenitis suppurativa Hidradenitis documented in this encounter Additional Health Concerns Assessment Noted Time PHQ-9 Depression Total Score: 8 01/31/20 18 7:19 AM CDT documented as of this encounter Care Teams Middle School Director Relationship Specialty Start Date End Date No Ref-Primary, Physician PCP - General 01/29/18 11/23/22 Andreina Vegas MD [address] [place] [address] PCP - General inking machine tender 11/24/22 Andreina Vegas MD [address] [place] [address] Assigned OBGYN Provider 04/06/20 Neela Owens MD [address] [facility] [place] [address] Assigned Surgical Provider 01/24/23 documented as of this encounter
--- OUTSIDE RECORDS SUMMARY | 2023-06-22 20:48 | XMS_ITS | Encounter Summary ---
Author Name Unknown Organization [place] Address [address] [facility] [place] [address] Care Team Providers Care Photo Lab Specialist Name Role Phone No Ref-Primary, Physician Primary Care Provider Andreina Vegas MD Unavailable [phone] Andreina Vegas MD Primary Care Provider Neela Owens MD Unavailable [phone] Reason for Visit * Reason Onset Date Comments Refill Request 09/01/2022 Encounter Details Date Type Department Care Team (Late st Contact Info) Description 09/01/2022 MyC Refill [facility] [address] [place] [address] Andreina Vegas MD [address] [place], [place] [phone] Refill Request Social History Tobacco Use Types [...] Coronavirus/COVID-19? Unable to assess 08/08/2022 9:30 AM EMBALMER ASSISTANT documented as of this encounter Plan of Treatment Upcoming Encounters Date Type Department Care Team (Late st Contact Info) Description 08/10/2023 8:30 AM EMBALMER ASSISTANT Office Visit [facility] [address]rd [place] [phone] Sobeida Oden PA-C [address] [place] [address] documented as of this encounter Visit Diagnoses Diagnosis Hidradenitis suppurativa Hidradenitis documented in this encounter Additional Health Concerns Assessment Noted Time PHQ-9 Depression Total Score: 8 01/31/20 18 7:19 AM CDT documented as of this encounter Care Teams Photo Lab Specialist Relationship Specialty Start Date End Date No Ref-Primary, Physician PCP - General 01/29/18 11/23/22 Andreina Vegas MD [address] [place] [address] PCP - General landscape architecture teacher 11/24/22 Andreina Vegas MD [address] [place] [address] Assigned OBGYN Provider 04/06/20 Neela Owens MD [address] [facility] [place] [address] Assigned Surgical Provider 01/24/23 documented as of this encounter
== END 2023-06-17 07:48 | disposition home or self-care (01) ==
LOC: NFLDREF 06-22 20:43
PROVIDERS: PCP Family Medicine; Referring Provider Family Medicine; Visit Provider Family Medicine
DX: R73.03 Prediabetes (principal); E78.5 Hyperlipidemia, unspecified
CPT/HCPCS: 80053; 80061

== ENCOUNTER 2023-07-17 11:10 | Outpatient (CLI) | payer BC, SELFPAY ==
--- OUTSIDE RECORDS SUMMARY | 2023-07-17 11:13 | XMS_ITS | Encounter Summary ---
Author Name Unknown Organization [place] Address [address] [facility] [place] [address] Care Team Providers Care Planning Intern Name Role Phone Andreina Vegas MD Unavailable [phone] Andreina Vegas MD Primary Care Provider [phone] Neela Owens MD Unavailable [phone] Reason for Visit * Reason Onset Date Comments Letter Request 11/24/2022 Encounter Details Date Type Department Care Team (Late st Contact Info) Description 11/24/2022 MyC Medical Advice [facility] [address] [facility] [address] [place] [address] Andreina Vegas MD [address] [place] [address] Letter Request Social History Tobacco Use Types [...] due to her anxiety. Last OV 10/09/22 S. IVY Schroeder documented in this encounter Plan of Treatment Upcoming Encounters Date Type Department Care Team (Late st Contact Info) Description 08/10/2023 8:30 AM DIMENSIONAL INTEGRATION ENGINEER Office Visit [facility] [address]rd [place] [phone] Sobeida Oden PA-C [address] [place] [address] documented as of this encounter Visit Diagnoses Not on filedocumented in this encounter Additional Health Concerns Assessment Noted Time PHQ-9 Depression Total Score: 8 01/31/20 18 7:19 AM CDT documented as of this encounter Care Teams Planning Intern Relationship Specialty Start Date End Date Andreina Vegas MD [address] [place] [address] PCP - General overhead cleaner 11/24/22 Andreina Vegas MD [address] [place] [address] Assigned OBGYN Provider 04/06/20 Neela Owens MD [address] [facility] [place] [address] Assigned Surgical Provider 01/24/23 documented as of this encounter
--- OUTSIDE RECORDS SUMMARY | 2023-07-17 11:13 | XMS_ITS | Encounter Summary ---
Author Name Unknown Organization [place] Address [address] [facility] [place] [address] Care Team Providers Care Home Improvement Contractor Name Role Phone Andreina Vegas MD Unavailable [phone] Andreina Vegas MD Primary Care Provider [phone] Neela Owens MD Unavailable [phone] Reason for Visit * Reason Onset Date Comments Appointment 12/22/2022 HS - urgent refe rral Encounter Details Date Type Department Care Team (Late st Contact Info) Description 12/22/[address] [facility] [place] [address] [place] [address] 3rd [place] [address] Neela Owens MD [address] [place] [address] [place] [id number] Appointment (HS - urgent referral) Social History [...] a referral from Andreina Vegas MD in [facility] for the diagnoses of HS - [...] st Contact Info) Description 08/10/2023 8:30 AM HAIRSPRING II INSPECTOR Office Visit [facility] [address] [place] [address] Sobeida Oden PA-C [address] [place] [address] documented as of this encounter Visit Diagnoses Not on filedocumented in this encounter Additional Health Concerns Assessment Noted Time PHQ-9 Depression Total Score: 8 01/31/20 18 7:19 AM CDT documented as of this encounter Care Teams Home Improvement Contractor Relationship Specialty Start Date End Date Andreina Vegas MD [address] [place] [address] PCP - General medical art therapist 11/24/22 Andreina Vegas MD [address] [place] [address] Assigned OBGYN Provider 04/06/20 Neela Owens MD [address] [facility] [place] [address] Assigned Surgical Provider 01/24/23 documented as of this encounter
--- OUTSIDE RECORDS SUMMARY | 2023-07-17 11:13 | XMS_ITS | Encounter Summary ---
Author Name Unknown Organization [place] Address [address] [place] [address]. [place] [address] Care Team Providers Care Gastrointestinal Technician Name Role Phone Andreina Vegas MD Unavailable [phone] Andreina Vegas MD Primary Care Provider [phone] Neela Owens MD Unavailable [phone] Encounter Details Date Type Department Care Team (Late Contact Info) Description 2023 [facility] [place] [facility] [address] [place] [address] Jewels Frank Social History Tobacco Use [...] (Late Contact Info) Description 08/10/2023 8:30 AM BALLPOINT PENS ASSEMBLER Office Visit [facility] [address] [place] [address] Sobeida Oden PA-C [address] [place] [id number] documented as of this encounter Visit Diagnoses Not on filedocumented in this encounter Additional Health Concerns Assessment Noted Time PHQ-9 Depression Total Score: 8 01/31/20 18 7:19 AM CDT documented as of this encounter Care Teams Gastrointestinal Technician Relationship Specialty Start Date End Date Andreina Vegas MD [address] [place] [address] PCP - General test inspection engineer 11/24/22 Andreina Vegas MD [address] [place] [address] Assigned OBGYN Provider 04/06/20 Neela Owens MD [address] [facility] [place] [address] Assigned Surgical Provider 01/24/23 documented as of this encounter
--- OUTSIDE RECORDS SUMMARY | 2023-07-17 11:13 | XMS_ITS | Clinical Summary ---
Author Name Unknown Organization [place] Address [address] [place] [address]. [place] [address] Care Team Providers Care Hand Stitcher Name Role Phone Andreina Vegas MD Unavailable [phone] Andreina Vegas MD Primary Care Provider [phone] Neela Owens MD Unavailable [phone] Allergies Active Allergy Reactions Criticality Noted Date [...] Type Department Care Team Description 05/18/2023 Telephone [facility] [address]rd [place] [phone] Sobeida Oden PA-C Clinic Care Coordination - Initial 04/29/2023 Refill [facility] [address] 3rd [place] [phone] Neela Owens MD Refill Request from Last [...] PM CDT Pulse 66 05/31/2021 1:50 PM TOP PRECIPITATOR OPERATOR HELPER Temperature - - Respiratory Rate 22 10/02/2015 [...] st Contact Info) Description 08/10/2023 8:30 AM TOP PRECIPITATOR OPERATOR HELPER Office Visit [facility] [place] [id number] [facility] [address]rd [place] [address] Sobeida Oden PA-C [address] [place] [phone] Health Maintenance Due Date Last Done Comments ADVANCE CARE PLANNING 1977 ANNUAL REVIEW OF HM ORDERS 1977 CT COLONOGRAPHY 1977 FIT 1977 FLEX SIG 1977 GLUCOSE 1977 HEPATITIS B IMMUNIZATION (1 of 3 - 3-dose series) 1977 sDNA (Cologuard) 1977 Pneumococcal Vaccine: Pediatrics (0 to 5 Years) and At-Risk Patients (6 to 64 Years) (1 of 2 - PCV) 1983 COLONOSCOPY 1987 COLORECTAL CANCER SCREENING 1987 HIV SCREENING 01/24/1992 LIPID 01/29/2023 01/29/2018, 07/16, 06/21/2010 COVID-19 Vaccine ( season) 2023 06/19/2021, 09/19/2020 INFLUENZA VACCINE (#1) 2023 , 06/13/2021, 03/28/2020, Additional history exists PHQ-2 (once per calendar year) 2023 10/09/2022, 12/07/2020, 05/17/2019, Additional history exists YEARLY PREVENTIVE VISIT 10/10/2023 10/10/19 23, 12/07/2020, 05/17/2019, Additional history exists MAMMO SCREENING 10/11/2023 10/10/2022, 10/14, 06/06/2019, Additional history exists HPV TEST 12/07/2025 12/07/2020, 11/14, 10/02/2015, Additional history exists PAP 12/07/2025 12/07/2020, 10/02/2015 DTAP/TDAP/TD IMMUNIZATION (3 - Td or Tdap) 08/18/2027 08/17/2017, 03/11/2007 HEPATITIS C SCREENING Completed 01/16/2023 HPV IMMUNIZATION [...] age to complete this topic Care Teams Hand Stitcher Relationship Specialty Start Date End Date Andreina Vegas MD [address] [place] [address] PCP - General manager provider relations 11/24/22 Andreina Vegas MD [address] [place] [address] Assigned OBGYN Provider 04/06/20 Neela Owens MD [address] [facility] [place] [address] Assigned Surgical Provider 01/24/23
--- OUTSIDE RECORDS SUMMARY | 2023-07-17 11:13 | XMS_ITS | Encounter Summary ---
Author Name Unknown Organization [place] Address [address] [facility] [place] [address] Care Team Providers Care Sr Risk Management Consultant Name Role Phone No Ref-Primary, Physician Primary Care Provider Andreina Vegas MD Unavailable [phone] Reason for Visit * Reason Onset Date Comments Call Back 11/05/2022 Pt has referral with priority scheduling 1-2 weeks can we please call back pt to discuss. Pt prefers Neela Owens MD Hidradenitis suppurativa [L73.2] Encounter Details Date Type Department Care Team (Late st Contact Info) Description 11/05/[address] [address] Neela Owens MD [address] [facility] [place] [address] Call Back (Pt has referral with [...] [place] - 11/05/2022 1:41 PM CDT [facility] Call Center Phone Message May a detailed [...] st Contact Info) Description 08/10/2023 8:30 AM WIRE MILL ROVER Office Visit [facility] [address]rd [place] [address] Sobeida Oden PA-C [address] [place] [phone] documented as of this encounter Visit Diagnoses Not on filedocumented in this encounter Additional Health Concerns Assessment Noted Time PHQ-9 Depression Total Score: 8 01/31/20 18 7:19 AM CDT documented as of this encounter Care Teams Sr Risk Management Consultant Relationship Specialty Start Date End Date No Ref-Primary, Physician PCP - General 01/29/18 11/23/22 Andreina Vegas MD [address] [place] [address] Assigned OBGYN Provider 04/06/20 documented as of this encounter
--- OUTSIDE RECORDS SUMMARY | 2023-07-17 11:13 | XMS_ITS | Encounter Summary ---
Author Name Unknown Organization [place] Address [address] [facility] [place] [address] Care Team Providers Care Associate Program Manager Name Role Phone No Ref-Primary, Physician Primary Care Provider Andreina Vegas MD Unavailable [phone] Reason for Referral * Consultation (Priority: 1-2 Weeks) - Pending Review Specialty Diagnoses / Procedures Referred By Jose Ramon leslie Referred To Contact Dermatology Diagnoses Hidradenitis suppurativa Andreina Vegas MD [address] [place] [address] Referral ID Status Reason Start Date Expiration Date V isits Requested Visits Authorized [id number] Pending Review 11/04/2022 11/04/2023 1 1 Question Answer Referral Type: General Dermatology Reason for Referral: Rash - Pre-existing Preferred Location: ealth Picking Supervisor - Dr Gordillo at [facility] is preferred but others are ok if they can see her sooner Scheduling Instructions: [employer] will call you to coordinate your care as prescribed by your provider. If you don't hear from a hvac sales representative within 2 business days, please call [phone]. Comments Please be aware that coverage of these services is subject to the terms and limitations of your health insurance plan. Call member services at your health plan with any benefit or coverage questions. [employer] will call you to coordinate your care as prescribed by your provider. If you don't hear from a hvac sales representative within 2 business days, please call [phone]. Reason for Visit * Reason Onset Date Comments Referral 11/04/2022 Encounter Details Date Type Department Care Team (Late st Contact Info) Description 11/04/2022 Telephone [facility] [address] [place] [address] Andreina Vegas MD [address] [place], [place] [address] Referral Social History Tobacco Use Types Packs/Day [...] 3:52 PM CDT Added referral. Kasia Lau DISTRICT COMMERCIAL SUPERINTENDENT * Telephone Encounter - Kasia Self RN - 11/04/2022 3:46 PM CDT ----- Message from Andreina Vegas MD sent at 11/04/2022 1:27 PM CDT ----- Regarding: FW: Question about HS Please set up referral to derm at [facility] for this patient with Dr. Gordillo [...] the . You can placean adult dermatology forklift mechanic referral as priority which would get her an appointment to get treatment started- any hide puller at the can manage HS with biologics [...] to schedule these patients with [place] [facility] I see adults at [facility], but they need to havea PCP there to see me at that site, so that's an option for those patients. ----- Message ----- From: Andreina Vegas MD Sent: 10/19/2022 11:14 AM CDT To: Neela Owens MD Subject: Question about HS Dr. Owens, I'm one of the OBGYNs in [place], and this is a patient with worsening [...] while I haven't needed to refer nora del angel much so far, certainly I would benefit [...] st Contact Info) Description 08/10/2023 8:30 AM MECHATRONICS TECHNICIAN Office Visit [facility] Clinic [address]rd [place] [address] Sobeida Oden PA-C [address] [place] [address] Scheduled Referrals Name Type Priority Associated Diagnoses Orde r Schedule Adult Dermatology Referral Referral Priority: 1-2 Weeks Hidradenitis suppurativa Expected: 11/04/2022 (Approximate), Expires: 11/05/2023 documented as of this encounter Visit Diagnoses Diagnosis Hidradenitis suppurativa- Primary Hidradenitis documented in this encounter Additional Health Concerns Assessment Noted Time PHQ-9 Depression Total Score: 8 01/31/20 18 7:19 AM CDT documented as of this encounter Care Teams Associate Program Manager Relationship Specialty Start Date End Date No Ref-Primary, Physician PCP - General 01/29/18 11/23/22 Andreina Vegas MD [address] [place] [address] Assigned OBGYN Provider 04/06/20 documented as of this encounter
--- OUTSIDE RECORDS SUMMARY | 2023-07-17 11:13 | XMS_ITS | Clinical Summary ---
Author Name Unknown Organization [facility] Address [place], [place] [address] Care Team Providers Care Certified Hearing Instrument Dispenser Name Role Phone Pcp, No Primary Care [...] 104.3 kg (230 lb) 04/23/2019 8:34 AM GAS ENGINE REPAIRER Height 160 cm (5' 3) 12/07/2017 4:24 [...] age to complete this topic Care Teams Certified Hearing Instrument Dispenser Relationship Specialty Start Date End Date Pcp, No . PCP - General 12/25/22
--- OUTSIDE RECORDS SUMMARY | 2023-07-17 11:13 | XMS_ITS | Encounter Summary ---
Author Name Unknown Organization [place] Address [address] [facility] [place] [address] Care Team Providers Care Sanitizer Name Role Phone Andreina Vegas MD Unavailable [phone] Andreina Vegas MD Primary Care Provider [phone] Neela Owens MD Unavailable [phone] Reason for Visit * Reason Onset Date Comments Clinic Care Coordination - Initial 05/18/2023 Encounter Details Date Type Department Care Team (Late st Contact Info) Description 05/18/2023 Telephone [facility] [address]rd [place] [address] Sobeida Oden PA-C [address] [place] [phone] Clinic Care Coordination - Initial Social History [...] Oden Return date: 08-10-23 Specialty phone number: [phone] ER STEWARD documented in this encounter Plan of Treatment Upcoming Encounters Date Type Department Care Team (Late st Contact Info) Description 08/10/2023 8:30 AM SILVER STEWARD Office Visit [facility] Dermatology [address]rd [place] [phone] Sobeida Oden PA-C [address] [place] [phone] documented as of this encounter Visit Diagnoses Not on filedocumented in this encounter Additional Health Concerns Assessment Noted Time PHQ-9 Depression Total Score: 8 01/31/20 18 7:19 AM CDT documented as of this encounter Care Teams Sanitizer Relationship Specialty Start Date End Date Andreina Vegas MD [address] [place] [address] PCP - General new accounts clerk 11/24/22 Andreina Vegas MD [address] [place] [address] Assigned OBGYN Provider 04/06/20 Neela Owens MD [address] [facility] [place] [address] Assigned Surgical Provider 01/24/23 documented as of this encounter
--- OUTSIDE RECORDS SUMMARY | 2023-07-17 11:13 | XMS_ITS | Referral Summary ---
Author Name Unknown Organization [place] Address [address] [place] [address]. [place] [address] Care Team Providers Care Service Bar Cashier Name Role Phone Andreina Vegas MD Unavailable [phone] Andreina Vegas MD Primary Care Provider [phone] Neela Owens MD Unavailable [phone] Encounters Date Type Department Care Team Description 05/18/2023 Telephone [facility] [address] [phone] Sobeida Oden PA-C Clinic Care Coordination - Initial 04/29/2023 Refill [facility]ermatology [address] [phone] Neela Owens MD Refill Request from Last [...] PM CDT Pulse 66 05/31/2021 1:50 PM BARREL REPAIRER Temperature - - Respiratory Rate 22 10/02/2015 [...] st Contact Info) Description 08/10/2023 8:30 AM BARREL REPAIRER Office Visit [facility]ology Clinic [address]rd [place] [phone] Sobeida Oden PA-C [address] [place] [address] Care Teams Service Bar Cashier Relationship Specialty Start Date End Date Andreina Vegas MD [address] [facility] [place] [place] [address] PCP - General flat bed knitter 11/24/22 Andreina Vegas MD [address] [facility] [place] [address] Assigned OBGYN Provider 04/06/20 Neela Owens MD [address] [place] [address] Assigned Surgical Provider 01/24/23
--- OUTSIDE RECORDS SUMMARY | 2023-07-17 11:13 | XMS_ITS | Encounter Summary ---
Author Name Unknown Organization [place] Address [address] [facility] [place] [address] Care Team Providers Care Tipple Worker Name Role Phone Andreina Vegas MD Unavailable [phone] Andreina Vegas MD Primary Care Provider [phone] Neela Owens MD Unavailable [phone] Reason for Visit * Reason Onset Date Comments Appointment 11/24/2022 Encounter Details Date Type Department Care Team (Late st Contact Info) Description 11/24/[address] [facility] [address] [place] [address] Andreina Vegas MD [address] [place] [address] Appointment Social History Tobacco Use Types Packs/Day [...] we send this information to you in [facility] or would you prefer to receive a phone call?: No preference Okay to leave a detailed message?: Yes at Home number on file [phone] (home) Call taken on 11/24/2022 at 8:35 AM by Vani Tran documented in this encounter Plan of Treatment Upcoming Encounters Date Type Department Care Team (Late st Contact Info) Description 08/10/2023 8:30 AM SOUNDSCRIBER MECHANIC Office Visit [facility] Dermatology Clinic [address]rd [place] [address] Sobeida Oden PA-C [address] [place] [phone] documented as of this encounter Visit Diagnoses Not on filedocumented in this encounter Additional Health Concerns Assessment Noted Time PHQ-9 Depression Total Score: 8 01/31/20 18 7:19 AM CDT documented as of this encounter Care Teams Tipple Worker Relationship Specialty Start Date End Date Andreina Vegas MD [address] [place] [address] PCP - General finisher map and chart 11/24/22 Andreina Vegas MD [address] [place] [address] Assigned OBGYN Provider 04/06/20 Neela Owens MD [address] [facility] [place] [address] Assigned Surgical Provider 01/24/23 documented as of this encounter
--- OUTSIDE RECORDS SUMMARY | 2023-07-17 11:13 | XMS_ITS | Encounter Summary ---
Author Name Unknown Organization [facility] Address [address] [place] [address]. [place] [address] Care Team Providers Care Intermediate Project Manager Name Role Phone Andreina Vegas MD Unavailable [phone] Andreina Vegas MD Primary Care Provider Encounter Details Date Type Department Care Team (Late Contact Info) Description 01/16/2023 12:00 PM CDT Lab [facility] Lab [address] [address] Hidradenitis suppurativa Social History Tobacco [...] st Contact Info) Description 08/10/2023 8:30 AM SOLAR PHOTOVOLTAIC DESIGNER Office Visit [facility] [address] [place] [address] Sobeida Oden PA-C [address] [place] [address] documented as of this encounter Procedures [...] UM SPECIALTY CORE/PROT/ENDO UM Specialty Core/Prot/Endo 500 [facility] J Building, Room [address] [place] [address], [facility] [phone] * Quantiferon TB Gold Plus Purple Tube (01/16/2023 11:50 AM CDT) Pathologist [facility] Quantiferon Mitogen 10.00 IU/mL 01/18/2023 2:18 PM CDT UM SPECIALTY CORE/PROT/ENDO Blood STRUCTURE OF LEFT UPPER LIMB / Unknown Venipuncture / Unknown 01/16/2023 11:50 AM CDT 01/16/2023 11:50 AM CDT Neela Owens MD LAB - MICRO GENER AL ORDERABLES UM SPECIALTY CORE/PROT/ENDO UM Specialty Core/Prot/Endo 500 [facility], Room [address] [phone] * Quantiferon TB Gold Plus Yellow Tube (01/16/2023 11:50 AM CDT) Quantiferon TB2 Tube 0.00 01/18/2023 12:55 PM CDT UM SPECIALTY CORE/PROT/ENDO Blood STRUCTURE OF LEFT UPPER LIMB / Unknown Venipuncture / Unknown 01/16/2023 11:50 AM CDT 01/16/2023 11:50 AM CDT Neela Owens MD LAB - MICRO GENER AL ORDERABLES UM SPECIALTY CORE/PROT/ENDO Specialty Core/Prot/Endo 500 [facility], Room [address] [phone] * Quantiferon TB Gold Plus Green Tube (01/16/2023 11:50 AM CDT) Quantiferon TB1 Tube 0.00 IU/mL 01/18/2023 12:45 PM CDT UM SPECIALTY CORE/PROT/ENDO Blood STRUCTURE OF LEFT UPPER LIMB / Unknown Venipuncture / Unknown 01/16/2023 11:50 AM CDT 01/16/2023 11:50 AM CDT Neela Owens MD LAB - MICRO GENER AL ORDERABLES UM SPECIALTY CORE/PROT/ENDO UM Specialty Core/Prot/Endo [facility], Room [address] [phone] * Quantiferon TB Gold Plus Ortiz Tube (01/16/2023 11:50 AM CDT) Pathologist [facility] Quantiferon Nil Tube 0.00 IU/mL 01/18/2023 1:03 PM CDT SPECIALTY CORE/PROT/ENDO Blood STRUCTURE OF LEFT UPPER LIMB / Unknown Venipuncture / Unknown 01/16/2023 11:50 AM CDT 01/16/2023 11:50 AM CDT Neela Owens MD LAB - MICRO GENER AL ORDERABLES SPECIALTY CORE/PROT/ENDO Specialty Core/Prot/Endo 500 [facility], Room [address] [phone] * CBC with platelets and differential (01/16/2023 11:50 AM CDT) [facility] WBC Count 8.8 4.0 - 11.0 10e3/uL 01/16/2023 11:53 AM CDT [facility] - CORE LAB RBC Count 4.66 3.80 - 5.20 10e6/uL 01/16/2023 11:53 AM CDT [facility] - CORE LAB Hemoglobin 12.5 11.7 - 15.7 g/dL 01/16/2023 11:53 AM CDT [facility] - CORE LAB Hematocrit 38.9 35.0 - 47.0 % 01/16/2023 11:53 AM CDT [facility] - CORE LAB MCV 84 78 - 100 fL 01/16/2023 11:53 AM CDT [facility] - CORE LAB MCH 26.8 26.5 - 33.0 pg 01/16/2023 11:53 AM CDT [facility] - CORE LAB MCHC 32.1 31.5 - 36.5 g/dL 01/16/2023 11:53 AM CDT [facility] - CORE LAB RDW 13.4 10.0 - 15.0 % 01/16/2023 11:53 AM CDT [facility] - [facility]ORE LAB Platelet Count 324 150 - 450 10e3/uL 01/16/2023 11:53 AM CDT [facility] - [facility]ORE [facility] % Neutrophils 62 % 01/16/2023 11:53 AM CDT [facility]ORE [facility] % Lymphocytes 28 % 01/16/2023 11:53 AM CDT [facility] % Monocytes 6 % 01/16/2023 11:53 AM CDT [facility] % Eosinophils 2 % 01/16/2023 11:53 AM CDT [facility]ORE [facility] % Basophils 1 % 01/16/2023 11:53 AM CDT [facility]ORE [facility] % Immature Granulocytes 1 % 01/16/2023 11:53 AM CDT [facility]ORE [facility] NRBCs per 100 WBC 0 <1 /100 023 11:53 AM CDT [facility] - [facility]ORE [facility] Absolute Neutrophils 5.5 1.6 - 8.3 10e3/uL 01/16/2023 11:53 AM CDT [facility] - [facility]ORE [facility] Absolute Lymphocytes 2.5 0.8 - 5.3 10e3/uL 01/16/2023 11:53 AM CDT [facility] Absolute Monocytes 0.5 0.0 - 1.3 10e3/uL 01/16/2023 11:53 AM CDT [facility] - [facility]ORE [facility] Absolute Eosinophils 0.2 0.0 - 0.7 10e3/uL 01/16/2023 11:53 AM CDT [facility] - [facility]ORE [facility] Absolute Basophils 0.0 0.0 - 0.2 10e3/uL 01/16/2023 11:53 AM CDT [facility]ORE [facility] Absolute Immature Granulocytes 0.1 <=0.4 10e3/uL 01/16/2023 11:53 AM CDT [facility] Absolute NRBCs 0.0 e3/uL 01/16/2023 11:53 AM CDT [facility]ORE [facility] Blood STRUCTURE OF LEFT UPPER LIMB / Unknown Venipuncture / Unknown 01/16/2023 11:50 AM CDT 01/16/2023 11:50 AM CDT Neela Owens MD LAB - BLOOD ORDER JAMES [facility] - CORE LAB [address] 1st [place] [address] * Hepatitis B core antibody (01/16/2023 11:50 AM CDT) Hepatitis B Core Antibody Total Nonreactive Nonreactive 01/16/2023 5:13 PM CDT UM SPECIALTY CORE/PROT/EN DO Blood STRUCTURE OF LEFT UPPER LIMB / Unknown Venipuncture / Unknown 01/16/2023 11:50 AM CDT 01/16/2023 11:50 AM CDT Neela Owens MD LAB - BLOOD ORDER JAMES UM SPECIALTY CORE/PROT/ENDO UM Specialty Core/Prot/Endo 500 [facility], Room [address] [phone] * Hepatitis C antibody (01/16/2023 11:50 AM [...] UM SPECIALTY CORE/PROT/ENDO UM Specialty Core/Prot/Endo 500 [facility], Room [address] [phone] * Hepatitis B surface antigen (01/16/2023 11:50 AM CDT) Hepatitis B Surface Antigen Nonreactive Nonreactive 01/16/2023 5:13 PM CDT UM SPECIALTY CORE/PROT/EN DO Blood STRUCTURE OF LEFT UPPER LIMB / Unknown Venipuncture / Unknown 01/16/2023 11:50 AM CDT 01/16/2023 11:50 AM CDT Neela Owens MD LAB - BLOOD ORDER JAMES Performing Organization Address [facility]/ZIP Co de Phone Number UM SPECIALTY CORE/PROT/ENDO Specialty Core/Prot/Endo 500 [facility], [facility] [address] [phone] * Hepatitis B Surface Antibody (01/16/2023 11:50 AM CDT) Hepatitis B Surface Antibody Instrument Value 272.88 <8.00 m[IU]/mL 01/16/2023 5:13 PM CDT UM SPECIALTY CORE/PROT/END O Hepatitis B Surface Antibody [...] - BLOOD ORDER JAMES Performing Organization Address [facility]/ZIP Co de Phone Number SPECIALTY CORE/PROT/ENDO Specialty Core/Prot/Endo 500 [facility], [address] [phone] * (ABNORMAL) Comprehensive metabolic panel (01/16/2023 11:50 AM CDT) Pathologist [facility] Sodium 137 136 - 145 mmol/L 01/16/2023 12:22 PM CDT [facility] - [facility] Potassium 4.4 3.4 - 5.3 mmol/L 01/16/2023 12:22 PM CDT [facility] Chloride 102 98 - 107 mmol/L 01/16/2023 12:22 PM CDT [facility] Carbon Dioxide (CO2) 26 22 - 29 mmol/L 01/16/2023 12:22 PM CDT [facility] Anion Gap 9 7 - 15 mmol/L 01/16/2023 12:22 PM CDT [facility] Urea Nitrogen 9.7 6.0 - 20.0 mg/dL 01/16/2023 12:22 PM CDT [facility] Creatinine 0.63 0.51 - 0.95 mg/dL 01/16/2023 12:22 PM CDT [facility] LAB Calcium 9.4 8.6 - 10.0 mg/dL 01/16/2023 12:22 PM CDT [facility] Glucose 123(H) 70 - 99 mg/dL 01/16/2023 12:22 PM CDT [facility] Alkaline Phosphatase 94 35 - 104 U/L 01/16/2023 12:22 PM CDT [facility] AST 17 0 - 45 U/L 01/16/2023 12:22 PM CDT [facility] Comment:Reference intervals for this test were updated on 11/24/2022 to more accurately reflect our healthy population. There may be differences in the flagging of prior results with similar values performed with this method. Interpretation of those prior results can be made in the context of the updated reference intervals. ALT 17 0 - 50 U/L 01/16/2023 12:22 PM CDT [facility] Comment:Reference intervals for [...] - 8.3 g/dL 01/16/2023 12:22 PM CDT [facility] Albumin 4.3 3.5 - 5.2 g/dL 01/16/2023 12:22 PM CDT [facility] Bilirubin Total 0.6 <=1.2 mg/dL 01/16/2023 12:22 PM CDT [facility] GFR Estimate >90 >60 mL/min/1. 73m2 01/16/2023 12:22 PM T [facility]ORE [facility] Blood STRUCTURE OF LEFT UPPER LIMB / Unknown Venipuncture / Unknown 01/16/2023 11:50 AM CDT 01/16/2023 11:50 AM CDT Neela Owens MD LAB - BLOOD ORDER JAMES [facility] - CORE LAB [facility] [address] [facility] 1st [place] [address] documented in this encounter Visit Diagnoses Diagnosis Hidradenitis suppurativa Hidradenitis documented in this encounter Additional Health Concerns Assessment Noted Time PHQ-9 Depression Total Score: 8 01/31/20 18 7:19 AM CDT documented as of this encounter Care Teams Intermediate Project Manager Relationship Specialty Start Date End Date Andreina Vegas MD [address] [place] [address] PCP - General software developer mid level 11/24/22 Andreina Vegas MD [address] [place] [address] Assigned OBGYN Provider 04/06/20 documented as of this encounter
--- OUTSIDE RECORDS SUMMARY | 2023-07-17 11:13 | XMS_ITS | Encounter Summary ---
Author Name Unknown Organization [facility] Address [address] [place] [address] Care Team Providers Care [employer] Special Education Teacher Name Role Phone Andreina Vegas MD Unavailable [phone] Andreina Vegas MD Primary Care Provider [phone] Reason for Visit * Reason Comments Derm [...] Andreina Vegas MD [address] [place] [address] Referral ID Status Reason Start Date Expiration Date V isits Requested Visits Authorized [id number] Pending Review 11/04/2022 11/04/2023 1 1 Encounter Details Date Type Department Care Team (Late st Contact Info) Description 01/16/2023 10:45 AM CDT Office Visit [facility]ology Clinic [address] 3rd [place] [address] Neela Owens MD [address] [address] Hidradenitis suppurativa [...] support: Help finding a mental health specialist: https://www.psychologyIEV.Colovore/us/therapists Suicide prevention (05/01 free confidential support): Website: https://suicidepreventionlifeline.org/ Support groups: Hope for HS: www.hopeforhs.org HS Connect: www.hsconnect.org Intimacy support: [place] Association of Sexuality Educators, Counselors and Therapists (AASECT) website: https://www.aasect.org For help quitting smoking Phone: Persian: 2-561-WDAY-NOW ( ) Wolof: 2-703-LCZUSP-CEDRIC ( ) Website: Persian: https://smokefree.gov/ Wolof: sailaja.smokefree.gov Lifestyle Modifications Quitting smoking or weight [...] medication for HS Education for adalimumab injections: https://www.[employer]/APROOFED-[employer]/injection Adalimumab abassador program: Website: https://www.[employer]/APROOFED-complete/sign-up/ Phone: 0.519.2FVNDNP ( ) Procedures: Intralesional steroid injections - [...] Owens MD - 01/16/2023 10:45 AM CDT [facility] Dermatology Note Encounter Date: Jan 16, [...] for adalimumab Staff and Medical Student: Sheila Ignacio, MS3, seen and staffed with Dr. Owens I was present with the medical student who participated in the service and in the documentation of the note. I have verified the history and personally performed the physical exam and medical decision making. I agree with the assessment and plan of care as documented in the note. Neela Owens MD Promotions Officer of Dermatology [facility] CC: Derm Problem (OB thinks she may [...] 1 during and one after delivery CC Anrdeina Vegas MD [address] [place] [phone] on close of this encounter. documented in [...] st Contact Info) Description 08/10/2023 8:30 AM AUTO DRIVER Office Visit [facility] [place] [address] [facility] [address] 3rd [place] [address] Sobeida Oden PA-C [address] [place] [address] documented as of this encounter Results * [...] UM SPECIALTY CORE/PROT/ENDO UM Specialty Core/Prot/Endo 500 [facility], [address] [phone] * Hepatitis C antibody (01/16/2023 11:50 AM [...] UM SPECIALTY CORE/PROT/ENDO UM Specialty Core/Prot/Endo 500 [facility], Room [address] [phone] * Hepatitis B surface antigen (01/16/2023 11:50 AM CDT) Pathologist [facility] Hepatitis B Surface Antigen Nonreactive Nonreactive 01/16/2023 5:13 PM CDT SPECIALTY CORE/PROT/EN DO Blood STRUCTURE OF LEFT UPPER LIMB / Unknown Venipuncture / Unknown 01/16/2023 11:50 AM CDT 01/16/2023 11:50 AM CDT Neela Owens MD LAB - BLOOD ORDER JAMES UM SPECIALTY CORE/PROT/ENDO UM Specialty Core/Prot/Endo 500 [facility], Room [address] [phone] * Hepatitis B Surface Antibody (01/16/2023 11:50 AM CDT) Pathologist [facility] Hepatitis B Surface Antibody Instrument Value 272.88 [...] JAMES UM SPECIALTY CORE/PROT/ENDO Specialty Core/Prot/Endo 500 [facility], Room [address] [phone] * (ABNORMAL) Comprehensive metabolic panel (01/16/2023 11:50 AM CDT) Pathologist [facility] Sodium 137 136 - 145 mmol/L 01/16/2023 12:22 PM CDT [facility] Potassium 4.4 3.4 - 5.3 mmol/L 01/16/2023 12:22 PM CDT [facility] Chloride 102 98 - 107 mmol/L 01/16/2023 12:22 PM CDT [facility] Carbon Dioxide (CO2) 26 22 - 29 mmol/L 01/16/2023 12:22 PM CDT [facility] Anion Gap 9 7 - 15 mmol/L 01/16/2023 12:22 PM CDT [facility] Urea Nitrogen 9.7 6.0 - 20.0 mg/dL 01/16/2023 12:22 PM CDT [facility] Creatinine 0.63 0.51 - 0.95 mg/dL 01/16/2023 12:22 PM CDT [facility] Calcium 9.4 8.6 - 10.0 mg/dL 01/16/2023 12:22 PM CDT [facility] Glucose 123(H) 70 - 99 mg/dL 01/16/2023 12:22 PM CDT [facility] Alkaline Phosphatase 94 35 - 104 U/L 01/16/2023 12:22 PM CDT [facility] AST 17 0 - 45 U/L 01/16/2023 12:22 PM CDT [facility] Comment:Reference intervals for this test were updated on 11/24/2022 to more accurately reflect our healthy population. There may be differences in the flagging of prior results with similar values performed with this method. Interpretation of those prior results can be made in the context of the updated reference intervals. ALT 17 0 - 50 U/L 01/16/2023 12:22 PM CDT [facility] Comment:Reference intervals for [...] - 8.3 g/dL 01/16/2023 12:22 PM CDT [facility] Albumin 4.3 3.5 - 5.2 g/dL 01/16/2023 12:22 PM CDT [facility] Bilirubin Total 0.6 <=1.2 mg/dL 01/16/2023 12:22 PM CDT [facility] GFR Estimate >90 >60 mL/min/1. 73m2 01/16/2023 12:22 PM CDT [facility] Blood STRUCTURE OF LEFT UPPER LIMB / Unknown Venipuncture / Unknown 01/16/2023 11:50 AM CDT 01/16/2023 11:50 AM CDT Neela Owens MD LAB - BLOOD ORDER JAMES [facility] LAB [facility] [address] 1st [place] [address] documented in this encounter Visit Diagnoses Diagnosis Hidradenitis suppurativa- Primary Hidradenitis Skin pain Disturbance of skin sensation documented in this encounter Additional Health Concerns Assessment Noted Time PHQ-9 Depression Total Score: 8 01/31/20 18 7:19 AM CDT documented as of this encounter Care Teams [employer] Special Education Teacher Relationship Specialty Start Date End Date Andreina Vegas MD [address] [place] [address] PCP - General condemnation engineer 11/24/22 Andreina Vegas MD [address] [place] [address] Assigned OBGYN Provider 04/06/20 documented as of this encounter
--- OUTSIDE RECORDS SUMMARY | 2023-07-17 11:13 | XMS_ITS | Encounter Summary ---
Author Name Unknown Organization [facility] Address [address] [facility] [place] [address] Care Team Providers Care Data Warehouse Analyst Name Role Phone Andreina Vegas MD Unavailable [phone] Andreina Vegas MD Primary Care Provider [phone] Neela Owens MD Unavailable [phone] Reason for Visit * Reason Onset Date Comments Refill Request 04/29/2023 Encounter Details Date Type Department Care Team (Late st Contact Info) Description 04/29/2023 Refill [facility] Dermatology Clinic [address] 3rd [place] [address] Neela Owens MD [facility] [facility] [address] [place] [id number] Refill Request Social History Tobacco Use Types [...] pending labs and insurance approval for adalimumab RUCTOR KINDERGARTEN documented in this encounter Plan of Treatment Upcoming Encounters Date Type Department Care Team (Late st Contact Info) Description 08/10/2023 8:30 AM INSTRUCTOR KINDERGARTEN Office Visit [facility] [address] [place] [phone] Sobeida Oden PA-C [address] [place] [address] documented as of this encounter Visit Diagnoses Diagnosis Hidradenitis suppurativa Hidradenitis documented in this encounter Additional Health Concerns Assessment Noted Time PHQ-9 Depression Total Score: 8 01/31/20 18 7:19 AM CDT documented as of this encounter Care Teams Data Warehouse Analyst Relationship Specialty Start Date End Date Andreina Vegas MD [address] [place] [address] PCP - General thread checker 11/24/22 Andreina Vegas MD [address] [place] [address] Assigned OBGYN Provider 04/06/20 Neela Owens MD [address] [facility] [place] [address] Assigned Surgical Provider 01/24/23 documented as of this encounter
--- OUTSIDE RECORDS SUMMARY | 2023-07-17 11:13 | XMS_ITS | Encounter Summary ---
Author Name Unknown Organization [place] Address [facility] [place] [address] Care Team Providers Care Vegetable Picker Name Role Phone Andreina Vegas MD Unavailable [phone] Andreina Vegas MD Primary Care Provider [phone] Reason for Visit * Reason Onset Date Comments Prior Auth - Medication 01/16/2023 Humira Encounter Details Date Type Department Care Team (Late st Contact Info) Description 01/16/2023 Telephone [facility] [address] [place] [address] Neela Owens MD [address] [place] [address] [place] [id number] Prior Auth - Medication (Humira) Social History [...] 4 per 28 days Reference #: [place]: [id number] Insurance Company: [facility] - Expected CoPay: $0.00 CoPay Card Available: No Financial Assistance Needed: no Which Pharmacy is filling the prescription: [facility] [place] [address] [facility] Notified: Yes Patient Notified: Yes * Telephone Encounter - Jewels Frank - 01/21/2023 7:54 AM CDT PA Initiation Medication: HUMIRA *CF* PEN 40 MG/0.4ML SC PNKT Insurance Company: [facility] - Pharmacy Filling the Rx: [facility] [place] [address] [facility] Filling Pharmacy Phone: Filling Pharmacy Fax: Start Date: 01/21/2023 [place]: [id number] * Telephone Encounter - Jewels Frank - 01/21/2023 7:53 AM CDT Images from the original note were not included. Prior Authorization Approval Medication: HUMIRA *CF* PEN-CD/UC/HS STARTER 80 MG/0.8ML SC PNKT Authorization Effective Date: 01/19/2023 Authorization Expiration Date: 01/20/2024 Approved Dose/Quantity: 3 for 28 days Reference #: [place]: [id number] Insurance Company: [employer] [place] - Expected CoPay: $0.00 CoPay Card Available: No Financial Assistance Needed: no Which Pharmacy is filling the prescription: [facility] Pharmacy Notified: No Patient Notified: No * Telephone Encounter - Jewels Frank - 01/19/2023 7:28 AM CDT Negative TB test sent to insurance. * Telephone Encounter - Jewels Frank - 01/19/2023 7:28 AM CDT PA Initiation Medication: HUMIRA *CF* PEN-CD/UC/HS STARTER 80 MG/0.8ML SC PNKT Insurance Company: [employer] [place] - Pharmacy Filling the Rx: [facility] - [address] Filling Pharmacy Phone: Filling Pharmacy Fax: Start Date: 01/16/2023 * Telephone Encounter - Jewels Frank - 01/16/2023 1:56 PM CDT Insurance requesting to know if TB test are negative or positive. Lab pending, will update insurance when labs are back documented in this encounter Plan of Treatment Upcoming Encounters Date Type Department Care Team (Late st Contact Info) Description 08/10/2023 8:30 AM BEATER HEAD Office Visit [facility] [address]rd [place] [address] Sobeida Oden PA-C [address] [place] [address] documented as of this encounter Visit Diagnoses Not on filedocumented in this encounter Additional Health Concerns Assessment Noted Time PHQ-9 Depression Total Score: 8 01/31/20 18 7:19 AM CDT documented as of this encounter Care Teams Vegetable Picker Relationship Specialty Start Date End Date Andreina Vegas MD [address] [place] [address] PCP - General plant wire chief 11/24/22 Andreina Vegas MD [address] [place] [address] Assigned OBGYN Provider 04/06/20 documented as of this encounter
--- OUTSIDE RECORDS SUMMARY | 2023-07-17 11:13 | XMS_ITS | Encounter Summary ---
Author Name Unknown Organization [place] Address [address] [facility] [place] [address] Care Team Providers Care Automobile Locator Name Role Phone Andreina Vegas MD Unavailable [phone] Andreina Vegas MD Primary Care Provider [phone] Encounter Details Date Type Department Care Team [...] st Contact Info) Description 08/10/2023 8:30 AM GLASSWARE MAKER Office Visit [facility] [address] 3rd [place] [address] Sobeida Oden PA-C [address] [place] [address] documented as of this encounter Visit Diagnoses Not on filedocumented in this encounter Additional Health Concerns Assessment Noted Time PHQ-9 Depression Total Score: 8 01/31/20 18 7:19 AM CDT documented as of this encounter Care Teams Automobile Locator Relationship Specialty Start Date End Date Andreina Vegas MD [address] [place] [address] PCP - General chief lending officer 11/24/22 Andreina Vegas MD [address] [place] [address] Assigned OBGYN Provider 04/06/20 documented as of this encounter
--- OUTSIDE RECORDS SUMMARY | 2023-07-17 11:14 | XMS_ITS | Encounter Summary ---
Author Name Unknown Organization [place] Address [address] [facility] [place] [address] Care Team Providers Care Cloth Bleaching Range Tender Name Role Phone No Ref-Primary, Physician Primary Care Provider Andreina Vegas MD Unavailable [phone] Reason for Visit * Reason Comments Medication Refill Encounter Details Date Type Department Care Team (Late st Contact Info) Description 10/18/[address] [address] Andreina Vegas MD [address] [place] [address] Medication Refill Social History Tobacco [...] st Contact Info) Description 08/10/2023 8:30 AM PEDIATRIC ONCOLOGIST Office Visit [facility] [address] 3rd [place] [phone] Sobeida Oden PA-C [address] [place] [address] documented as of this encounter Visit Diagnoses Diagnosis Hidradenitis suppurativa Hidradenitis documented in this encounter Additional Health Concerns Assessment Noted Time PHQ-9 Depression Total Score: 8 01/31/20 18 7:19 AM CDT documented as of this encounter Care Teams Cloth Bleaching Range Tender Relationship Specialty Start Date End Date No Ref-Primary, Physician PCP - General 01/29/18 11/23/22 Andreina Vegas MD [address] [place] [address] Assigned OBGYN Provider 04/06/20 documented as of this encounter
--- OUTSIDE RECORDS SUMMARY | 2023-07-17 11:14 | XMS_ITS | Encounter Summary ---
Author Name Unknown Organization [place] Address [address] [place] [address] Care Team Providers Care Athlete Manager Name Role Phone No Ref-Primary, Physician Primary Care Provider Andreina Vegas MD Unavailable [phone] Andreina Vegas MD Primary Care Provider [phone] Neela Owens MD Unavailable [phone] Reason for Visit * Reason Comments Medication Refill Encounter Details Date Type Department Care Team (Late Contact Info) Description 08/08/[address] [address] Andreina Vegas MD [address] [place] [address] Medication Refill Social History Tobacco [...] Coronavirus/COVID-19? Unable to assess 08/08/2022 9:30 AM MEDIA TRAFFIC MANAGER documented as of this encounter Plan of Treatment Upcoming Encounters Date Type Department Care Team (Late Contact Info) Description 08/10/2023 8:30 AM MEDIA TRAFFIC MANAGER Office Visit [facility] Dermatology Clinic [address] 3rd [place] [phone] Sobeida Oden PA-C [address] [place] [address] documented as of this encounter Visit Diagnoses Diagnosis Hidradenitis suppurativa Hidradenitis documented in this encounter Additional Health Concerns Assessment Noted Time PHQ-9 Depression Total Score: 8 01/31/20 18 7:19 AM CDT documented as of this encounter Care Teams Athlete Manager Relationship Specialty Start Date End Date No Ref-Primary, Physician PCP - General 01/29/18 11/23/22 Andreina Vegas MD [address] [place] [address] PCP - General fire chief's aide 11/24/22 Andreina Vegas MD [address] [place] [address] Assigned OBGYN Provider 04/06/20 Neela Owens MD [address] [facility] [place] [address] Assigned Surgical Provider 01/24/23 documented as of this encounter
--- OUTSIDE RECORDS SUMMARY | 2023-07-17 11:14 | XMS_ITS | Encounter Summary ---
Author Name Unknown Organization [place] Address [facility] [place] [address] Care Team Providers Care Risk Investigator Name Role Phone No Ref-Primary, Physician Primary Care Provider Andreina Vegas MD Unavailable [phone] Reason for Visit * Reason Onset Date Comments Refill Request 09/01/2022 Encounter Details Date Type Department Care Team (Late st Contact Info) Description 09/01/2022 MyC Refill [address] [address] Andreina Vegas MD [address] [place] [address] Refill Request Social History Tobacco [...] Coronavirus/COVID-19? Unable to assess 08/08/2022 9:30 AM ROUTE AIDE documented as of this encounter Miscellaneous Notes * Telephone Encounter - Michelle Schroeder RN - 09/01/2022 8:57 AM CDT Prescription approved per [facility] Refill Protocol. Pt has an appt on 10/09/22. Michelle Viramontes, RN documented in this encounter Plan of Treatment Upcoming Encounters Date Type Department Care Team (Late st Contact Info) Description 08/10/2023 8:30 AM ROUTE AIDE Office Visit [facility] Dermatology Clinic [address] 3rd [place] [address] Sobeida Oden PA-C [address] [place] [address] documented as of this encounter Visit Diagnoses Diagnosis Hidradenitis suppurativa Hidradenitis documented in this encounter Additional Health Concerns Assessment Noted Time PHQ-9 Depression Total Score: 8 01/31/20 18 7:19 AM CDT documented as of this encounter Care Teams Risk Investigator Relationship Specialty Start Date End Date No Ref-Primary, Physician PCP - General 01/29/18 11/23/22 Andreina Vegas MD [address] [place] [address] Assigned OBGYN Provider 04/06/20 documented as of this encounter
--- OUTSIDE RECORDS SUMMARY | 2023-07-17 11:14 | XMS_ITS | Encounter Summary ---
Author Name Unknown Organization [place] Address [address] [facility] [place] [address] Care Team Providers Care Life Insurance Underwriter Name Role Phone No Ref-Primary, Physician Primary Care Provider Andreina Vegas MD Unavailable [phone] Andreina Vegas MD Primary Care Provider [phone] Neela Owens MD Unavailable [phone] Reason for Visit * Reason Comments Medication Refill Encounter Details Date Type Department Care Team ([facility] Contact Info) Description 10/27/2022 Refill [facility] [address] [facility] [address] [place] [address] Andreina Vegas MD [address] [place] [address] Medication Refill Social History Tobacco Use Types [...] Upcoming Encounters Date Type Department Care Team ([facility] Contact Info) Description 08/10/2023 8:30 AM SENIOR COMPLIANCE ANALYST Office Visit [facility] [place] [address] [facility] 3rd [place] [address] Sobeida Oden PA-C [address] [place] [address] documented as of this encounter Visit Diagnoses Diagnosis Hidradenitis suppurativa Hidradenitis documented in this encounter Additional Health Concerns Assessment Noted Time PHQ-9 Depression Total Score: 8 01/31/20 18 7:19 AM CDT documented as of this encounter Care Teams Life Insurance Underwriter Relationship Specialty Start Date End Date No Ref-Primary, Physician PCP - General 01/29/18 11/23/22 Andreina Vegas MD [address] [place] [address] PCP - General bellman captain 11/24/22 Andreina Vegas MD [address] [place] [address] Assigned OBGYN Provider 04/06/20 Neela Owens MD [address] [facility] [place] [address] Assigned Surgical Provider 01/24/23 documented as of this encounter
--- OUTSIDE RECORDS SUMMARY | 2023-07-17 11:14 | XMS_ITS | Encounter Summary ---
Author Name Unknown Organization [place] Address [address] [facility] [place] [address] Care Team Providers Care Cotton Weigher Operator Name Role Phone No Ref-Primary, Physician Primary Care Provider Andreina Vegas MD Unavailable [phone] Encounter Details Date Type Department Care Team [...] Coronavirus/COVID-19? Unable to assess 08/08/2022 9:30 AM FUR WEIGHER documented as of this encounter Plan of Treatment Upcoming Encounters Date Type Department Care Team (Late st Contact Info) Description 08/10/2023 8:30 AM FUR WEIGHER Office Visit [facility] Dermatology Clinic [address]rd [place] [address] Sobeida Oden PA-C [address] [place] [address] documented as of this encounter Visit Diagnoses Not on filedocumented in this encounter Additional Health Concerns Assessment Noted Time PHQ-9 Depression Total Score: 8 01/31/20 18 7:19 AM CDT documented as of this encounter Care Teams Cotton Weigher Operator Relationship Specialty Start Date End Date No Ref-Primary, Physician PCP - General 01/29/18 11/23/22 Andreina Vegas MD [address] [place] [address] Assigned OBGYN Provider 04/06/20 documented as of this encounter
--- OUTSIDE RECORDS SUMMARY | 2023-07-17 11:14 | XMS_ITS | Encounter Summary ---
Author Name Unknown Organization [place] Address [address] [facility] [place] [address] Care Team Providers Care Slot Service Specialist Name Role Phone No Ref-Primary, Physician Primary Care Provider Andreina Vegas MD Unavailable [phone] Encounter Details Date Type Department Care [...] st Contact Info) Description 08/10/2023 8:30 AM GIS ANALYST DEVELOPER Office Visit [facility] Dermatology Clinic [address]rd [place] [address] Sobeida Oden PA-C [address] [place] [address] documented as of this encounter Visit Diagnoses Not on filedocumented in this encounter Additional Health Concerns Assessment Noted Time PHQ-9 Depression Total Score: 8 01/31/20 18 7:19 AM CDT documented as of this encounter Care Teams Slot Service Specialist Relationship Specialty Start Date End Date No Ref-Primary, Physician PCP - General 01/29/18 11/23/22 Andreina Vegas MD [address] [place] [address] Assigned OBGYN Provider 04/06/20 documented as of this encounter
--- OUTSIDE RECORDS SUMMARY | 2023-07-17 11:14 | XMS_ITS | Encounter Summary ---
Author Name Unknown Organization [place] Address [address] [facility] [place] [address] Care Team Providers Care Network Program Manager Name Role Phone No Ref-Primary, Physician Primary Care Provider Andreina Vegas MD Unavailable [phone] Andreina Vegas MD Primary Care Provider [phone] Neela Owens MD Unavailable [phone] Reason for Visit * Reason Onset Date Comments Refill Request 08/08/2022 Encounter Details Date Type Department Care Team (Late st Contact Info) Description 08/08/2022 MyC Refill [facility] [address] [facility] [address] [place] [address] Andreina Vegas MD [address] [place] [address] Refill Request Social History Tobacco Use Types [...] Coronavirus/COVID-19? Unable to assess 08/08/2022 9:30 AM CHIEF DIETITIAN documented as of this encounter Miscellaneous Notes * Telephone Encounter - Michelle Schroeder RN - 08/08/2022 10:11 AM CHIEF DIETITIAN Pt is overdue for her annual exam. My chart message sent to the pt. Once she makes an appt, we can approve refills. Michelle Viramontes, RN F DIETITIAN documented in this encounter Plan of Treatment Upcoming Encounters Date Type Department Care Team (Late st Contact Info) Description 08/10/2023 8:30 AM CHIEF DIETITIAN Office Visit [facility]atology Clinic [address]rd [place] [phone] Sobeida Oden PA-C [address] [place] [address] documented as of this encounter Visit Diagnoses Diagnosis Hidradenitis suppurativa Hidradenitis documented in this encounter Additional Health Concerns Assessment Noted Time PHQ-9 Depression Total Score: 8 01/31/20 18 7:19 AM CDT documented as of this encounter Care Teams Network Program Manager Relationship Specialty Start Date End Date No Ref-Primary, Physician PCP - General 01/29/18 11/23/22 Andreina Vegas MD [address] [place] [address] PCP - General roll builder 11/24/22 Andreina Vegas MD [address] [place] [address] Assigned OBGYN Provider 04/06/20 Neela Owens MD [address] [facility] [place] [address] Assigned Surgical Provider 01/24/23 documented as of this encounter
--- OUTSIDE RECORDS SUMMARY | 2023-07-17 11:14 | XMS_ITS | Encounter Summary ---
Author Name Unknown Organization [place] Address [facility] [place] [address] Care Team Providers Care Cambering Machine Operator Name Role Phone No Ref-Primary, Physician Primary Care Provider Andreina Vegas MD Unavailable [phone] Reason for Referral * Diagnostic Imaging Mammo (Routine) - Pending Review Specialty Diagnoses / Procedures Referred By Jose Ramon leslie Referred To Contact Radiology. Diagnoses Visit for screening mammogram Procedures MA Screening Bilateral w/ Victor Manuel MA Screening Bilateral w/ Victor ManuelAndreina Godoy MD [address] [place] [address] Referral ID Status Reason Start Date Expiration Date V isits Requested Visits Authorized [id number] Pending Review 10/09/2022 10/09/2023 1 1 Reason for Visit * Diagnostic Imaging Mammo (Routine) - Pending Review Specialty Diagnoses / Procedures Referred By Jose Ramon leslie Referred To Contact Radiology. Diagnoses Visit for screening mammogram Procedures MA Screening Bilateral w/ Victor Manuel MA Screening Bilateral w/ Victor ManuelAndreina Godoy MD [address] [place] [address] Referral ID Status Reason Start Date Expiration Date V isits Requested Visits Authorized [id number] Pending Review 10/09/2022 10/09/2023 1 1 Encounter Details Date Type Department Care Team (Latest Contact Info) Description 10/10/2022 8:13 AM CDT - 10/10/2022 11:59 PM CDT Hospital Encounter [facility] [address] [facility], [address] [place] [address] No Ref-Primary, Physician Andreina Vegas MD [address] [place] [address] Visit for screening mammogram Discharge Disposition: Home [...] st Contact Info) Description 08/10/2023 8:30 AM ELECTRIC TRUCK OPERATOR Office Visit [facility] Dermatology Clinic [address]rd [place] [address] Sobeida Oden PA-C [address] [place] [address] documented as of this encounter Procedures [...] documented as of this encounter Care Teams Cambering Machine Operator Relationship Specialty Start Date End Date No Ref-Primary, Physician PCP - General 01/29/18 11/23/22 Andreina Vegas MD [address] [place] [address] Assigned OBGYN Provider 04/06/20 documented as of this encounter
--- OUTSIDE RECORDS SUMMARY | 2023-07-17 11:14 | XMS_ITS | Encounter Summary ---
Author Name Unknown Organization [place] Address [address] [facility] [place] [address] Care Team Providers Care Heel Gouger Name Role Phone No Ref-Primary, Physician Primary Care Provider Andreina Vegas MD Unavailable [phone] Andreina Vegas MD Primary Care Provider [phone] Neela Owens MD Unavailable [phone] Reason for Visit * Reason Onset Date Comments Refill Request 09/01/2022 Encounter Details Date Type Department Care Team (Late st Contact Info) Description 09/01/2022 MyC Refill [facility] [address] [place] [address] Andreina Vegas MD [address] [place] [address] Refill Request Social History Tobacco Use Types [...] Coronavirus/COVID-19? Unable to assess 08/08/2022 9:30 AM LOADING MACHINE TOOL SETTER documented as of this encounter Plan of Treatment Upcoming Encounters Date Type Department Care Team (Late st Contact Info) Description 08/10/2023 8:30 AM LOADING MACHINE TOOL SETTER Office Visit [facility]atology Clinic [address]rd [place] [phone] Sobeida Oden PA-C [address] [place] [address] documented as of this encounter Visit Diagnoses Diagnosis Hidradenitis suppurativa Hidradenitis documented in this encounter Additional Health Concerns Assessment Noted Time PHQ-9 Depression Total Score: 8 01/31/20 18 7:19 AM CDT documented as of this encounter Care Teams Heel Gouger Relationship Specialty Start Date End Date No Ref-Primary, Physician PCP - General 01/29/18 11/23/22 Andreina Vegas MD [address] [place] [address] PCP - General production posting clerk 11/24/22 Andreina Vegas MD [address] [place] [address] Assigned OBGYN Provider 04/06/20 Neela Owens MD [address] [facility] [place] [address] Assigned Surgical Provider 01/24/23 documented as of this encounter
--- OUTSIDE RECORDS SUMMARY | 2023-07-17 11:14 | XMS_ITS | Encounter Summary ---
Author Name Unknown Organization [place] Address [address] [facility] [place] [address] Care Team Providers Care Small Engine Specialist Name Role Phone No Ref-Primary, Physician Primary Care Provider Andreina Vegas MD Unavailable [phone] Reason for Referral * Consultation (Priority: 1-2 Weeks) - Pending Review Specialty Diagnoses / Procedures Referred By Jose Ramon leslie Referred To Contact Dermatology Diagnoses Hidradenitis suppurativa Andreina Vegas MD [address] [place] [address] [facility] [address] [facility] [address] [place] [address] Referral ID Status Reason Start Date Expiration Date V isits Requested Visits Authorized [id number] Pending Review 10/12/2022 10/12/2023 1 1 Question Answer Referral Type: General Dermatology Reason for Referral: Other My Clinical Question Is: Hidradenitis of the groin, mostly, progressive despite topical clinda and oral doxy. Vulvar specialist, please. Preferred Location: Select an [facility] Location Preferred Location: [facility] Scheduling Instructions: [employer] [place] will call you to coordinate your care as prescribed by the provider. If you don? t hear from a life assurance representative within 2 business days, please call the number listed above. Additional Information: Needs vulvar derm specialist Comments Please be aware that coverage of these services is subject to the terms and limitations of your health insurance plan. Call member services at your health plan with any benefit or coverage questions. [employer] [place] will call you to coordinate your care as prescribed by the provider. If you don? t hear from a life assurance representative within 2 business days, please call the [...] Description 10/09/2022 1:30 PM CDT Office Visit [facility] [address] [place] [address] Andreina Vegas MD [address] [place] [address] Women's annual routine gynecological examination (Primary Dx); [...] and referral to vulvar dermatology at the [facility] was placed today, to explore other options including [employer]. (E66.01) Morbid obesity (H) Comment: Plan: Impacts her hidradenitis, which she is aware of. Keep working on diet and exercise as able. (Z86.638) History of DVT (deep vein thrombosis) Comment: [...] in this encounter Nursing Notes * Eveline Chambers MEDICAL RECORD SPECIALIST - 10/09/2022 1:30 PM CDT Chief Complaint [...] st Contact Info) Description 08/10/2023 8:30 AM CASH APPLICATIONS ANALYST Office Visit [facility] [place] [address] [facility] 3rd [place] [address] Sobeida Oden PA-C [address] [place] [id number] Scheduled Referrals Name Type Priority Associated Diagnoses [...] documented as of this encounter Care Teams Small Engine Specialist Relationship Specialty Start Date End Date No Ref-Primary, Physician PCP - General 01/29/18 11/23/22 Andreina Vegas MD [address] [place] [address] Assigned OBGYN Provider 04/06/20 documented as of this encounter
--- OUTSIDE RECORDS SUMMARY | 2023-07-17 11:14 | XMS_ITS | Encounter Summary ---
Author Name Unknown Organization [place] Address [address] [facility] [place] [address] Care Team Providers Care Makeup Sales Advisor Name Role Phone No Ref-Primary, Physician Primary Care Provider Andreina Vegas MD Unavailable [phone] Encounter Details Date Type Department Care [...] st Contact Info) Description 08/10/2023 8:30 AM SURGICAL AIDES TEACHER Office Visit [facility] D[facility] Clinic [address]rd [place] [address] Sobeida Oden PA-C [address] [place] [address] documented as of this encounter Visit Diagnoses Not on filedocumented in this encounter Additional Health Concerns Assessment Noted Time PHQ-9 Depression Total Score: 8 01/31/20 18 7:19 AM CDT documented as of this encounter Care Teams Makeup Sales Advisor Relationship Specialty Start Date End Date No Ref-Primary, Physician PCP - General 01/29/18 11/23/22 Andreina Vegas MD [address] [place] [address] Assigned OBGYN Provider 04/06/20 documented as of this encounter
--- OUTSIDE RECORDS SUMMARY | 2023-07-17 11:14 | XMS_ITS | Encounter Summary ---
Author Name Unknown Organization [place] Address [address] [facility] [place] [address] Care Team Providers Care Manager Social Services Name Role Phone No Ref-Primary, Physician Primary Care Provider Andreina Vegas MD Unavailable [phone] Andreina Vegas MD Primary Care Provider [phone] Neela Owens MD Unavailable [phone] Reason for Visit * Reason Comments Medication Refill Encounter Details Date Type Department Care Team (Late st Contact Info) Description 01/24/[address] [address] Andreina Vegas MD [address] [place], [place] [address] Medication Refill Social History Tobacco Use Types [...] st Contact Info) Description 08/10/2023 8:30 AM BINDING PRINTER Office Visit [facility] Dermatology Clinic [address] [place] [address] Sobeida Oden PA-C [address] [place] [address] documented as of this encounter Visit Diagnoses Diagnosis Mixed anxiety depressive disorder Dysthymic disorder documented in this encounter Additional Health Concerns Assessment Noted Time PHQ-9 Depression Total Score: 8 01/31/20 18 7:19 AM CDT documented as of this encounter Care Teams Manager Social Services Relationship Specialty Start Date End Date No Ref-Primary, Physician PCP - General 01/29/18 11/23/22 Andreina Vegas MD [address] [place] [address] PCP - General site project manager 11/24/22 Andreina Vegas MD [address] [place] [address] Assigned OBGYN Provider 04/06/20 Neela Owens MD [address] [facility] [place] [address] Assigned Surgical Provider 01/24/23 documented as of this encounter
[2023-07-18 07:16] LABS: Chlamydia DNA Amplified* Not Detected (No Detected); GC DNA Amplified* Not Detected (No Detected)
== END 2023-07-17 11:11 | disposition home or self-care (01) ==
PROVIDERS: PCP Family Medicine; Visit Provider Family Medicine
DX: Z11.3 Encounter for screening for infections with a predominantly sexual mode of transmission (principal)
CPT/HCPCS: 82043; 82570; 86592; 86703; 86803; 87491; 87591

== ENCOUNTER 2024-09-01 09:46 | Outpatient (CLI) | payer BC, SELFPAY | END 2024-09-01 09:47 | disposition home or self-care (01) | LOC: FRMREF 09:47 | PROVIDERS: PCP Family Medicine; Visit Provider Family Medicine | DX: E78.5 Hyperlipidemia, unspecified (principal); E11.9 Type 2 diabetes mellitus without complications; F41.9 Anxiety disorder, unspecified | CPT/HCPCS: 80053; 80061; 82043; 82570 ==